=== PATIENT | female | born 1945 | race Caucasian/White ===

== ENCOUNTER 2018-12-01 05:29 | Day surgery (SDC) | payer OTHER ==
[2018-11-27 14:11] VITALS: BP 116/59
[~2018-12-01] VITALS: Ht 176.5 cm; Wt 76.4 kg
[2018-12-01] VITALS (14 sets, daily range): BP systolic 97–110; BP diastolic 48–66
[~2018-12-01 05:29] MED LIST: BIESTROGEN PO; GABA-529 PO; GABA-531 PO; MULT-965 PO; PRAS1TAB2 PO; ROPI1TAB38 PO; TESTOSTERONE PO
[2018-12-01] MEDS ORDERED: BUPIVACAINE/PF 0.5% 30ML VIAL ONE (06:01)
[2018-12-01] MEDS ORDERED: LIDOCAINE HCL 1% MDV 50ML VIAL ONE (06:02)
[2018-12-01] MEDS ORDERED: LACTATED RINGERS 1000ML 1,000 ML IV ONE (06:07)
[2018-12-01] MEDS ORDERED: LIDOCAINE PF 2% 5ML ABBOJECT ONE (06:30)
[2018-12-01] MEDS ORDERED: FENTANYL CITRATE PF 50 MCG/1 ML 2ML VIAL ONE (06:30)
[2018-12-01] MEDS ORDERED: PROPOFOL 10 MG/ML 20ML VIAL IV ONE (06:30)
[2018-12-01] MEDS ORDERED: CEFAZOLIN SODIUM 1 GM VIAL ONE (06:41)
[2018-12-01] MEDS ORDERED: EPHEDRINE SULFATE 50 MG/ML AMPULE ONE (06:43)
[2018-12-01] MEDS ORDERED: KETOROLAC TROMETHAMINE 30MG/ML ONE (08:03)
--- NOTE | 2018-12-01 09:35 | NUR ---
DR ALVARADO, CALLS BACK,ORDERS TO CONTINUE HOME MEDS ,MAY AMBULATE TO BR USING HEELS ,AND THE LEAST WALKING,ONLY BR,,ATB HOME,KEEP DRESSING CLEAN AND DRY TIL SEEN IN OFFICE
--- NOTE | 2018-12-01 10:00 | NUR ---
NOTICED SCANT AMT OF SEROUS DRAINAGE TO LT SIDE OF LITTLE TOE ,LT FOOT,MARKED ,INSTRUCTED PT AND SPOUSE TO CALL DR OR BRING TO ER IF INCREASES ,VERBALIZES UNDERSTANDING
--- NOTE | 2018-12-01 10:10 | NUR ---
TO CAR VIA
== END 2018-12-01 10:10 | disposition home or self-care (01) ==
LOC: DAH 05:29
PROVIDERS: ATTEND Podiatrist Foot & Ankle Surgery
DX: M20.41 Other hammer toe(s) (acquired), right foot (principal); M72.2 Plantar fascial fibromatosis; E78.5 Hyperlipidemia, unspecified; J44.9 Chronic obstructive pulmonary disease, unspecified; Z98.890 Other specified postprocedural states; Z79.899 Other long term (current) drug therapy; G89.29 Other chronic pain; Z90.710 Acquired absence of both cervix and uterus; Z98.51 Tubal ligation status; E55.9 Vitamin D deficiency, unspecified; G25.81 Restless legs syndrome; K21.9 Gastro-esophageal reflux disease without esophagitis
CPT/HCPCS: 28060; 28285 ×3; 28286; 76000; A4649; A6446; C1776; J0690; J2001; J2704; J3010; J3490 ×3; J7120; L3260; J1885

== ENCOUNTER 2022-05-24 13:02 | Inpatient (IN) | payer OTHER ==
[~2022-05-24] VITALS: Ht 175.3 cm; Wt 82.8 kg
[2022-05-24] MEDS ORDERED: KETOROLAC 30MG VIAL (30MG/ML) IM STA (13:12)
[2022-05-24 15:16] LABS: BASOPHILS % (AUTO) 0.2 % (0.0-5.0); EOSINOPHILS % (AUTO) 0.8 % (0.0-8.0); HEMATOCRIT 36.7 % (36-48); LYMPHOCYTES % (AUTO) 6.1 % (21.0-51.0); MEAN CORPUSCULAR HGB CONC 32.4 g/dL (32.0-36.0); MEAN CORPUSCULAR VOLUME 92.4 fL (79-99); MONOCYTES % (AUTO) 5.7 % (3.0-13.0); NEUTROPHILS % (AUTO) 86.5 % (40.0-77.0); PLATELET COUNT (AUTO) 228 K/uL (130-400); RED BLOOD CELL COUNT(AUTO) 3.97 MIL/uL (4.00-5.50); RED CELL DISTRIBUTION WIDTH 14.8 % (11.0-15.5); WHITE BLOOD COUNT (AUTO) 8.6 K/uL (4.8-10.8)
[2022-05-24 15:25] LABS: CREATININE 0.7 mg/dL (0.5-1.5); POTASSIUM 3.3 mmol/L (3.5-5.1)
[2022-05-24 15:26] LABS: INR 0.98 (0.85-1.15); PROTHROMBIN TIME 10.7 SEC (9.6-11.6)
[2022-05-24 15:30] LABS: ALBUMIN 3.4 g/dL (3.5-5.0); TOTAL PROTEIN, SERUM 6.2 g/dL (6.0-8.3)
[2022-05-24] MEDS ORDERED: KETOROLAC 30MG VIAL (30MG/ML) IVP PRN (15:30)
[2022-05-24] MEDS ORDERED: HYDROCODONE/ACETAMINOPHEN 5/325 MG TAB PO PRN ×2 (15:30→18:00)
[2022-05-24] MEDS ORDERED: ONDANSETRON 4MG INJ IVP PRN (15:30)
[2022-05-24] MEDS ORDERED: LACTULOSE 20 GM/30 ML UDCUP PO PRN ×2 (15:30→21:30)
[2022-05-24] MEDS: 0.9%NACL 1000ML 1,000 ML IV SCH ×2 (15:43→23:30)
[2022-05-24 16:20] VITALS: BP 119/68
[2022-05-24] MEDS ORDERED: MORPHINE 2 MG SYG ONE (17:31)
[2022-05-24 20:00] VITALS: BP 98/52
[2022-05-24] MEDS ORDERED: DULO60CA64 PO (21:22)
[2022-05-24] MEDS ORDERED: BACL10TA PO (21:22)
[2022-05-24] MEDS ORDERED: POTASSIUM CHLORIDE 10% ELIXIR 20 MEQ/15 ML UDCUP PO PRN (21:30)
[2022-05-24] MEDS ORDERED: KCL 20 MEQ ERTAB PO PRN (21:30)
[2022-05-24] MEDS ORDERED: MAG/ALUM/SIMETH 30 ML UDCUP PO PRN (21:30)
[2022-05-24] MEDS ORDERED: ACETAMINOPHEN 325 MG TAB PO PRN ×2 (21:30)
[2022-05-24] MEDS ORDERED: DIPHENHYDRAMINE HCL 25 MG CAPSULE PO PRN (21:30)
[2022-05-24] MEDS ORDERED: DiphenhydrAMINE HCL 50 MG/ML VIAL IV PRN (21:30)
[2022-05-24] MEDS: BACLOFEN 10 MG TABLET PO PRN (22:26)
[2022-05-25] VITALS: BP 98/55
[2022-05-25] MEDS: MORPHINE 4 MG SYG IVP PRN ×2 (00:51→08:27)
[2022-05-25] MEDS: ONDANSETRON 4MG INJ IV PRN (00:51)
[2022-05-25 04:00] VITALS: BP 105/56
[2022-05-25 05:42] LABS: HEMATOCRIT 37.4 % (36-48); MEAN CORPUSCULAR HEMOGLOBIN 30.3 pg (27.0-33.0); MEAN CORPUSCULAR HGB CONC 31.6 g/dL (32.0-36.0); MEAN CORPUSCULAR VOLUME 95.9 fL (79-99); RED BLOOD CELL COUNT(AUTO) 3.9 MIL/uL (4.00-5.50); RED CELL DISTRIBUTION WIDTH 15.3 % (11.0-15.5); WHITE BLOOD COUNT (AUTO) 5.1 K/uL (4.8-10.8)
[2022-05-25 05:50] LABS: CREATININE 0.9 mg/dL (0.5-1.5); POTASSIUM 4.6 mmol/L (3.5-5.1)
[2022-05-25 08:00] VITALS: BP 97/60
[2022-05-25] MEDS: DULOXETINE HCL 30 MG CAP PO SCH ×2 (08:26→20:24)
[2022-05-25] MEDS: ENOXAPARIN SODIUM 40 MG/0.4 ML SYRINGE SQ SCH (08:26)
[2022-05-25] MEDS: PANTOPRAZOLE 40 MG TAB DR PO SCH (08:26)
[2022-05-25] MEDS: 0.9%NACL 1000ML 1,000 ML IV SCH ×3 (08:27→23:04)
[2022-05-25] MEDS ORDERED: MORPHINE 4 MG SYG IVP PRN (09:30)
[2022-05-25] MEDS ORDERED: ALBUTEROL 0.083% 2.5 MG/3 ML INH IH PRN (09:30)
[2022-05-25 12:00] VITALS: BP 106/45
[2022-05-25] MEDS: ALBUTEROL 0.083% 2.5 MG/3 ML INH IH SCH ×2 (14:21→22:57)
[2022-05-25] MEDS: BACLOFEN 10 MG TABLET PO PRN ×2 (14:40→20:24)
[2022-05-25 16:00] VITALS: BP 80/46
[2022-05-25] MEDS: HYDROCODONE/ACETAMINOPHEN 5/325 MG TAB PO PRN ×2 (17:28→22:00)
[2022-05-25] MEDS ORDERED: IPRATROPIUM 0.5 MG/2.5 ML INH IH SCH (18:30)
[2022-05-25] MEDS ORDERED: MULTIVITAMIN TABLET PO SCH (18:30)
[2022-05-25] MEDS ORDERED: CHLORDIAZEPOXIDE HCL 25 MG CAP PO PRN (18:30)
[2022-05-25] MEDS ORDERED: THIAMINE HCL 100 MG/ML 2ML VIAL IVP SCH (18:30)
[2022-05-25] MEDS ORDERED: [UNRECOGNIZED DRUG - MIXTURE] IV SCH (19:00)
[2022-05-25 20:00] VITALS: BP 100/55
[2022-05-25] MEDS: ROPINIROLE HCL 1 MG TABLET PO SCH (20:24)
[2022-05-25 20:31] LABS: ABG BASE EXCESS -1.9 mmol/L (-2.0-3.0); ABG OXYGEN SATURATION 92.8 % (95.0-99.0); ABG PCO2 45 mmHg (32-45)
[2022-05-26] VITALS (19 sets, daily range): BP systolic 93–118; BP diastolic 50–69
[2022-05-26 03:45] LABS: HEMATOCRIT 33.8 % (36-48); MEAN CORPUSCULAR HEMOGLOBIN 30.3 pg (27.0-33.0); MEAN CORPUSCULAR HGB CONC 31.7 g/dL (32.0-36.0); MEAN CORPUSCULAR VOLUME 95.8 fL (79-99); RED BLOOD CELL COUNT(AUTO) 3.53 MIL/uL (4.00-5.50); WHITE BLOOD COUNT (AUTO) 5.7 K/uL (4.8-10.8)
[2022-05-26 04:01] LABS: CREATININE 0.7 mg/dL (0.5-1.5); POTASSIUM 4.5 mmol/L (3.5-5.1)
[2022-05-26] MEDS: MORPHINE 2 MG SYG IVP PRN ×2 (04:18→09:35)
[2022-05-26] MEDS: ONDANSETRON 4MG INJ IV PRN ×2 (04:18→09:34)
[2022-05-26] MEDS ORDERED: IPRATROPIUM 0.5 MG/2.5 ML INH IH ONE (06:32)
[2022-05-26] MEDS: ALBUTEROL 0.083% 2.5 MG/3 ML INH IH SCH ×3 (07:46→23:09)
[2022-05-26] MEDS: IPRATROPIUM 0.5 MG/2.5 ML INH IH SCH ×3 (07:46→23:09)
[2022-05-26] MEDS: DULOXETINE HCL 30 MG CAP PO SCH ×2 (08:22→20:31)
[2022-05-26] MEDS: PANTOPRAZOLE 40 MG TAB DR PO SCH (08:22)
[2022-05-26] MEDS: ENOXAPARIN SODIUM 40 MG/0.4 ML SYRINGE SQ SCH ×2 (08:22→09:43)
[2022-05-26] MEDS: MULTIVITAMIN TABLET PO SCH (08:22)
[2022-05-26] MEDS: THIAMINE HCL 100 MG/ML 2ML VIAL IVP SCH (09:34)
[2022-05-26] MEDS ORDERED: FENTANYL CITRATE PF 50 MCG/1 ML 2ML VIAL ONE ×2 (12:06→15:06)
[2022-05-26] MEDS ORDERED: MIDAZOLAM HCL 1 MG/ML 2ML VIAL ONE (12:06)
[2022-05-26] MEDS ORDERED: PROPOFOL 10 MG/ML 20ML VIAL IV ONE (12:06)
[2022-05-26] MEDS ORDERED: ROCURONIUM 10MG/1ML SYR 10 MG/ML ML ONE ×2 (12:07→13:48)
[2022-05-26] MEDS ORDERED: SUCCINYLCHOLINE CHLORIDE 20 MG/ML 10 ML VIAL ONE (12:07)
[2022-05-26] MEDS ORDERED: LIDOCAINE PF 100MG/5ML (2%) SYRINGE 5ML ONE (12:07)
[2022-05-26] MEDS ORDERED: DEXAMETHASONE SOD PHOSPHATE 10MG/ML 1ML VIAL ONE (12:08)
[2022-05-26] MEDS ORDERED: ONDANSETRON 4MG INJ ONE (12:08)
[2022-05-26] MEDS ORDERED: DEXAMETHASONE SOD PHOSPHATE 4 MG/ML 1ML VIAL ONE (12:26)
[2022-05-26] MEDS ORDERED: ROPIVACAINE 0.5% 5MG/ML 30ML IJ ONE (12:26)
[2022-05-26] MEDS ORDERED: FAMOTIDINE 20MG VIAL IV ONE (12:27)
[2022-05-26] MEDS ORDERED: CEFAZOLIN SODIUM 1 GM VIAL ONE (12:53)
[2022-05-26] MEDS ORDERED: DIPHENHYDRAMINE HCL 25 MG CAPSULE PO PRN (13:30)
[2022-05-26] MEDS ORDERED: KCL 20 MEQ ERTAB PO PRN (13:30)
[2022-05-26] MEDS: 0.9%NACL 1000ML 1,000 ML IV SCH ×2 (13:30→23:30)
[2022-05-26] MEDS ORDERED: CALCIUM CARB 500MG PO PRN (13:30)
[2022-05-26] MEDS: ACETAMINOPHEN 500 MG TABLET PO SCH ×2 (13:30→20:38)
[2022-05-26] MEDS ORDERED: FERROUS FUMARATE 324 MG TABLET PO PRN (13:30)
[2022-05-26] MEDS ORDERED: POTASSIUM CHLORIDE 10% ELIXIR 20 MEQ/15 ML UDCUP PO PRN (13:30)
[2022-05-26] MEDS ORDERED: POTASSIUM CHLORIDE 20MEQ/100ML 100 ML IV PRN (13:30)
[2022-05-26] MEDS ORDERED: DiphenhydrAMINE HCL 50 MG/ML VIAL IVP PRN (13:30)
[2022-05-26] MEDS ORDERED: GLYCOPYRROLATE 1 MG/5 ML SYRINGE ONE (14:28)
[2022-05-26] MEDS ORDERED: NEOSTIGMINE 5MG/5ML SYR IV ONE (14:28)
[2022-05-26] MEDS: CEFAZOLIN SODIUM 1 GM VIAL IVP SCH (20:30)
[2022-05-26] MEDS: ROPINIROLE HCL 1 MG TABLET PO SCH (20:31)
[2022-05-27 04:07] VITALS: BP 108/62
[2022-05-27] MEDS: CEFAZOLIN SODIUM 1 GM VIAL IVP SCH (04:54)
[2022-05-27] MEDS: ACETAMINOPHEN 500 MG TABLET PO SCH ×3 (04:57→21:30)
[2022-05-27 05:05] LABS: BASOPHILS % (AUTO) 0.1 % (0.0-5.0); HEMATOCRIT 31.4 % (36-48); LYMPHOCYTES % (AUTO) 2.9 % (21.0-51.0); MEAN CORPUSCULAR HEMOGLOBIN 30.1 pg (27.0-33.0); MEAN CORPUSCULAR HGB CONC 31.8 g/dL (32.0-36.0); MEAN CORPUSCULAR VOLUME 94.6 fL (79-99); MONOCYTES % (AUTO) 4.9 % (3.0-13.0); NEUTROPHILS % (AUTO) 91.7 % (40.0-77.0); PLATELET COUNT (AUTO) 197 K/uL (130-400); RED BLOOD CELL COUNT(AUTO) 3.32 MIL/uL (4.00-5.50); RED CELL DISTRIBUTION WIDTH 14.7 % (11.0-15.5); WHITE BLOOD COUNT (AUTO) 8.2 K/uL (4.8-10.8)
[2022-05-27 05:10] LABS: CREATININE 0.7 mg/dL (0.5-1.5); POTASSIUM 4.4 mmol/L (3.5-5.1)
[2022-05-27] MEDS: IPRATROPIUM 0.5 MG/2.5 ML INH IH SCH ×3 (06:30→21:58)
[2022-05-27] MEDS: ALBUTEROL 0.083% 2.5 MG/3 ML INH IH SCH ×3 (06:30→21:58)
[2022-05-27 08:08] VITALS: BP 92/58
[2022-05-27] MEDS ORDERED: ENOXAPARIN SODIUM 40 MG/0.4 ML SYRINGE SQ SCH (09:00)
[2022-05-27] MEDS: 0.9%NACL 1000ML 1,000 ML IV SCH (09:30)
[2022-05-27] MEDS: DULOXETINE HCL 30 MG CAP PO SCH ×2 (11:09→21:04)
[2022-05-27 11:10] VITALS: BP 101/61
[2022-05-27] MEDS: MULTIVITAMIN TABLET PO SCH (11:10)
[2022-05-27] MEDS: POLYETHYLENE GLYCOL 3350 17 GM POWD.PACK PO SCH (11:10)
[2022-05-27] MEDS: PANTOPRAZOLE 40 MG TAB DR PO SCH (11:11)
[2022-05-27] MEDS: THIAMINE HCL 100 MG/ML 2ML VIAL IVP SCH (11:12)
[2022-05-27] MEDS: HYDROCODONE/ACETAMINOPHEN 5/325 MG TAB PO PRN ×2 (11:18→21:08)
[2022-05-27] MEDS: PSYLLIUM SEED 1 EACH PACKET PO SCH (12:00)
[2022-05-27] MEDS ORDERED: HYDR-4060 PO (14:18)
[2022-05-27] MEDS ORDERED: APIX5TAB PO (14:18)
[2022-05-27 16:51] VITALS: BP 102/59
[2022-05-27] MEDS: ROPINIROLE HCL 1 MG TABLET PO SCH (21:03)
[2022-05-27] MEDS: APIXABAN 5 MG TABLET PO SCH (21:07)
[2022-05-27] MEDS: BACLOFEN 10 MG TABLET PO PRN (21:07)
[2022-05-28] VITALS: BP 93/46
[2022-05-28 04:00] VITALS: BP 90/49
[2022-05-28] MEDS: ACETAMINOPHEN 500 MG TABLET PO SCH (05:30)
[2022-05-28] MEDS: HYDROCODONE/ACETAMINOPHEN 5/325 MG TAB PO PRN (06:09)
[2022-05-28] MEDS: IPRATROPIUM 0.5 MG/2.5 ML INH IH SCH ×2 (06:45→14:29)
[2022-05-28] MEDS: ALBUTEROL 0.083% 2.5 MG/3 ML INH IH SCH ×2 (06:45→14:29)
[2022-05-28 08:00] VITALS: BP 93/47
[2022-05-28] MEDS: THIAMINE HCL 100 MG/ML 2ML VIAL IVP SCH (08:49)
[2022-05-28] MEDS: APIXABAN 5 MG TABLET PO SCH (08:50)
[2022-05-28] MEDS: POLYETHYLENE GLYCOL 3350 17 GM POWD.PACK PO SCH (08:50)
[2022-05-28] MEDS: DULOXETINE HCL 30 MG CAP PO SCH (08:50)
[2022-05-28] MEDS: PANTOPRAZOLE 40 MG TAB DR PO SCH (08:50)
[2022-05-28] MEDS: MULTIVITAMIN TABLET PO SCH (08:50)
[2022-05-28 11:52] VITALS: BP 101/47
[2022-05-28] MEDS: PSYLLIUM SEED 1 EACH PACKET PO SCH (12:00)
[2022-05-28] MEDS ORDERED: BISACODYL 5 MG TABLET.DR PO PRN (13:30)
[2022-05-28] MEDS ORDERED: MAGNESIUM CITRATE 296 ML SOLUTION PO ONE (13:30)
[2022-05-28] MEDS ORDERED: LACTULOSE 20 GM/30 ML UDCUP PO ONE (14:30)
[2022-05-29] MEDS ORDERED: BISACODYL 10 MG SUPP.RECT RC PRN (13:30)
== END 2022-05-28 15:06 | disposition home health service (06) | DRG 522 ==
LOC: EDH 13:02 → EDHIP 15:14 → 4AH 16:16
PROVIDERS: ADMIT Internal Medicine; ATTEND Internal Medicine
PROC: 0SRR0JZ Replacement of Right Hip Joint, Femoral Surface with Synthetic Substitute, Open Approach (ICD-10-PCS; principal; 2022-05-26 12:34)
DX: S72.001A Fracture of unspecified part of neck of right femur, initial encounter for closed fracture (principal); G72.0 Drug-induced myopathy; I50.30 Unspecified diastolic (congestive) heart failure; J96.11 Chronic respiratory failure with hypoxia; Z20.822 Contact with and (suspected) exposure to COVID-19; M51.9 Unspecified thoracic, thoracolumbar and lumbosacral intervertebral disc disorder; K31.84 Gastroparesis; K21.9 Gastro-esophageal reflux disease without esophagitis; G25.81 Restless legs syndrome; M54.10 Radiculopathy, site unspecified; J44.9 Chronic obstructive pulmonary disease, unspecified; W01.0XXA Fall on same level from slipping, tripping and stumbling without subsequent striking against object, initial encounter; E78.00 Pure hypercholesterolemia, unspecified; K66.0 Peritoneal adhesions (postprocedural) (postinfection); T46.6X5A Adverse effect of antihyperlipidemic and antiarteriosclerotic drugs, initial encounter; Z90.49 Acquired absence of other specified parts of digestive tract; Z86.16 Personal history of COVID-19; Z79.01 Long term (current) use of anticoagulants; Y93.89 Activity, other specified; Y92.89 Other specified places as the place of occurrence of the external cause; Y99.8 Other external cause status
CPT/HCPCS: 36415; 36600; 71045; 71250; 72192; 73502; 76705; 80048; 80053; 82803; 85025; 85027; 85610; 87635; 93306; 93356; 94010; 94640; 94664; 97039; A4344; C1776; G0378; J0330; J0690; J1100; J1650; J1885; J2001; J2250; J2270; J2405; J2704; J2710; J2795; J3010; J3411; J3490; J7030

== ENCOUNTER 2022-12-03 20:45 | Inpatient (IN) | payer OTHER ==
[~2022-12-03] VITALS: Ht 175.3 cm; Wt 81.6 kg
[~2022-12-03 20:45] MED LIST changes: +APIX5TAB PO; +BACL10TA PO; +DULO60CA64 PO; -GABA-529 PO; -GABA-531 PO; +HYDR-4060 PO
[2022-12-03 21:56] LABS: BASOPHILS % (AUTO) 0.2 % (0.0-5.0); EOSINOPHILS % (AUTO) 0.4 % (0.0-8.0); HEMATOCRIT 44.3 % (36-48); LYMPHOCYTES % (AUTO) 5.3 % (21.0-51.0); MEAN CORPUSCULAR HEMOGLOBIN 30.2 pg (27.0-33.0); MEAN CORPUSCULAR HGB CONC 31.8 g/dL (32.0-36.0); MEAN CORPUSCULAR VOLUME 94.9 fL (79-99); MONOCYTES % (AUTO) 5.7 % (3.0-13.0); NEUTROPHILS % (AUTO) 87.5 % (40.0-77.0); PLATELET COUNT (AUTO) 268 K/uL (130-400); RED BLOOD CELL COUNT(AUTO) 4.67 MIL/uL (4.00-5.50); RED CELL DISTRIBUTION WIDTH 14.8 % (11.0-15.5); WHITE BLOOD COUNT (AUTO) 14.6 K/uL (4.8-10.8)
[2022-12-03] MEDS ORDERED: MORPHINE 4 MG SYG IVP ONE (22:00)
[2022-12-03] MEDS ORDERED: ONDANSETRON 4MG INJ IVP ONE (22:00)
[2022-12-03 22:06] LABS: CREATININE 0.7 mg/dL (0.5-1.5); POTASSIUM 3.6 mmol/L (3.5-5.1)
[2022-12-03 22:08] LABS: APPEARANCE,URINE CLEAR (CLEAR); BILIRUBIN,URINE NEGATIVE (NEGATIVE); COLOR,URINE YELLOW (YELLOW); GLUCOSE, URINE (UA) NEGATIVE (NEGATIVE); KETONES,URINE NEGATIVE (NEGATIVE); LEUKOCYTE ESTERASE ,URINE NEGATIVE Leu/uL (NEGATIVE); NITRATE,URINE NEGATIVE (NEGATIVE); OCCULT BLOOD,URINE SMALL (NEGATIVE); PH,URINE 5.5 (5.0-8.0); PROTEIN,URINE NEGATIVE (NEGATIVE); UROBILINOGEN,URINE 0.2 mg/dL (0.2-1.0)
[2022-12-03 22:08] LABS: INR 0.99 (0.85-1.15); PROTHROMBIN TIME 10.8 SEC (9.6-11.6)
[2022-12-03 22:11] LABS: ALBUMIN 4.5 g/dL (3.5-5.0)
[2022-12-03 22:19] LABS: BACTERIA,URINE RARE /HPF (None Seen); MUCUS,URINE RARE LPF (None Seen); SQUAMOUS EPITHELIAL CELL,UR MOD /HPF (0-2); WBC,URINE 0-1 /HPF (0-1)
[2022-12-03] MEDS ORDERED: ORPHENADRINE CITRATE 30 MG/ML ML IVP ONE (22:30)
[2022-12-03] MEDS ORDERED: IPRATROPIUM/ALBUTEROL SULFATE 3 ML SOLUTION IH PRN (23:30)
[2022-12-03] MEDS ORDERED: ACETAMINOPHEN 325 MG TAB PO PRN ×2 (23:30)
[2022-12-03] MEDS ORDERED: ONDANSETRON 4MG INJ IV PRN (23:30)
[2022-12-03] MEDS ORDERED: NITROGLYCERIN 0.4 MG SL TAB SL PRN (23:30)
[2022-12-03] MEDS: HYDROCODONE/ACETAMINOPHEN 5/325 MG TAB PO PRN (23:58)
[2022-12-04] VITALS (7 sets, daily range): BP systolic 89–105; BP diastolic 45–59
[2022-12-04] MEDS ORDERED: CHOL3000 PO (00:23)
[2022-12-04] MEDS ORDERED: CALC-1009 PO (00:23)
[2022-12-04] MEDS ORDERED: ASCO500T19 PO (00:23)
[2022-12-04] MEDS ORDERED: MV-M1TAB39 PO (00:23)
[2022-12-04] MEDS ORDERED: ACET-2113 PO (00:24)
[2022-12-04] MEDS ORDERED: KCL 20 MEQ ERTAB PO ONE (00:30)
[2022-12-04] MEDS ORDERED: IPRATROPIUM/ALBUTEROL SULFATE 3 ML SOLUTION IH PRN (00:30)
[2022-12-04] MEDS: 0.9%NACL 1000ML 1,000 ML IV SCH ×2 (00:51→10:30)
[2022-12-04 05:42] LABS: BASOPHILS % (AUTO) 0.2 % (0.0-5.0); EOSINOPHILS % (AUTO) 2.5 % (0.0-8.0); HEMATOCRIT 39.8 % (36-48); LYMPHOCYTES % (AUTO) 4.5 % (21.0-51.0); MEAN CORPUSCULAR HEMOGLOBIN 30.2 pg (27.0-33.0); MEAN CORPUSCULAR HGB CONC 31.7 g/dL (32.0-36.0); MEAN CORPUSCULAR VOLUME 95.4 fL (79-99); MONOCYTES % (AUTO) 6.6 % (3.0-13.0); NEUTROPHILS % (AUTO) 85.3 % (40.0-77.0); PLATELET COUNT (AUTO) 244 K/uL (130-400); RED BLOOD CELL COUNT(AUTO) 4.17 MIL/uL (4.00-5.50); RED CELL DISTRIBUTION WIDTH 14.9 % (11.0-15.5); WHITE BLOOD COUNT (AUTO) 12.2 K/uL (4.8-10.8)
[2022-12-04 06:15] LABS: ALBUMIN 3.4 g/dL (3.5-5.0); CREATININE 0.8 mg/dL (0.5-1.5); MAGNESIUM 2.2 mg/dL (1.80-2.40); POTASSIUM 5.2 mmol/L (3.5-5.1); TOTAL PROTEIN, SERUM 6.3 g/dL (6.0-8.3)
[2022-12-04] MEDS: ASCORBIC ACID 500 MG TAB PO SCH (08:04)
[2022-12-04] MEDS: FAMOTIDINE 20MG TAB PO SCH ×2 (08:04→19:47)
[2022-12-04] MEDS: CA 600MG+VIT D 400 UNIT TAB 1 TAB TABLET PO SCH (08:04)
[2022-12-04] MEDS: DULOXETINE HCL 30 MG CAP PO SCH ×2 (08:04→19:47)
[2022-12-04] MEDS: BACLOFEN 10 MG TABLET PO PRN ×2 (08:08→19:47)
[2022-12-04] MEDS: MULTIVITAMIN TABLET PO SCH (08:08)
[2022-12-04] MEDS: OCUVITE PO SCH (09:00)
[2022-12-04] MEDS: CHOLECALCIFEROL PO SCH (09:00)
[2022-12-04] MEDS: HYDROCODONE/ACETAMINOPHEN 5/325 MG TAB PO PRN (11:35)
[2022-12-04] MEDS: ROPINIROLE HCL 1 MG TABLET PO SCH (19:47)
[2022-12-04] MEDS: [UNRECOGNIZED DRUG - OTHER] PO SCH (20:50)
[2022-12-05] VITALS (22 sets, daily range): BP systolic 84–132; BP diastolic 42–73
[2022-12-05 05:46] LABS: BASOPHILS % (AUTO) 0.4 % (0.0-5.0); EOSINOPHILS % (AUTO) 3.7 % (0.0-8.0); HEMATOCRIT 38.5 % (36-48); LYMPHOCYTES % (AUTO) 5.2 % (21.0-51.0); MEAN CORPUSCULAR HEMOGLOBIN 30.2 pg (27.0-33.0); MEAN CORPUSCULAR HGB CONC 31.4 g/dL (32.0-36.0); MONOCYTES % (AUTO) 4.5 % (3.0-13.0); NEUTROPHILS % (AUTO) 85.4 % (40.0-77.0); PLATELET COUNT (AUTO) 203 K/uL (130-400); RED BLOOD CELL COUNT(AUTO) 4.01 MIL/uL (4.00-5.50); RED CELL DISTRIBUTION WIDTH 14.9 % (11.0-15.5); WHITE BLOOD COUNT (AUTO) 7.6 K/uL (4.8-10.8)
[2022-12-05 06:08] LABS: ALBUMIN 3.2 g/dL (3.5-5.0); CREATININE 0.8 mg/dL (0.5-1.5); POTASSIUM 3.9 mmol/L (3.5-5.1); TOTAL PROTEIN, SERUM 6.3 g/dL (6.0-8.3)
[2022-12-05] MEDS ORDERED: ROCURONIUM 10MG/1ML SYR 10 MG/ML ML ONE ×2 (07:51→08:55)
[2022-12-05] MEDS ORDERED: MIDAZOLAM HCL 1 MG/ML 2ML VIAL ONE (07:51)
[2022-12-05] MEDS ORDERED: SUCCINYLCHOLINE 200MG/10ML SYR ONE (07:51)
[2022-12-05] MEDS ORDERED: FENTANYL CITRATE PF 50 MCG/1 ML 2ML VIAL ONE (07:51)
[2022-12-05] MEDS ORDERED: PROPOFOL 10 MG/ML 20ML VIAL IV ONE (07:51)
[2022-12-05] MEDS ORDERED: TRANEXAMIC ACID 1000MG/10ML ONE ×2 (08:41→08:42)
[2022-12-05] MEDS: CHOLECALCIFEROL PO SCH (09:00)
[2022-12-05] MEDS: DULOXETINE HCL 30 MG CAP PO SCH ×2 (09:00→21:25)
[2022-12-05] MEDS: CA 600MG+VIT D 400 UNIT TAB 1 TAB TABLET PO SCH (09:00)
[2022-12-05] MEDS: FAMOTIDINE 20MG TAB PO SCH ×2 (09:00→21:25)
[2022-12-05] MEDS: OCUVITE PO SCH (09:00)
[2022-12-05] MEDS: MULTIVITAMIN TABLET PO SCH (09:00)
[2022-12-05] MEDS: ASCORBIC ACID 500 MG TAB PO SCH (09:00)
[2022-12-05] MEDS ORDERED: NEOSTIGMINE 5MG/5ML SYR IV ONE (10:03)
[2022-12-05] MEDS ORDERED: GLYCOPYRROLATE 1 MG/5 ML SYRINGE ONE (10:03)
[2022-12-05] MEDS ORDERED: ROPIVACAINE 0.5% 5MG/ML 30ML IJ ONE (10:06)
[2022-12-05] MEDS ORDERED: MEPERIDINE-PF 25 MG/ML SYG ONE ×2 (10:37→10:46)
[2022-12-05] MEDS ORDERED: KETOROLAC 15MG/ML VIAL (15MG/ML) ONE (10:46)
[2022-12-05] MEDS: RIVAROXABAN 10 MG TABLET PO SCH (12:00)
[2022-12-05] MEDS: HYDROCODONE/ACETAMINOPHEN 5/325 MG TAB PO PRN ×3 (12:11→23:31)
[2022-12-05] MEDS: BACLOFEN 10 MG TABLET PO PRN (15:31)
[2022-12-05] MEDS: ROPINIROLE HCL 1 MG TABLET PO SCH (21:25)
[2022-12-05] MEDS: [UNRECOGNIZED DRUG - OTHER] PO SCH (21:28)
[2022-12-06] VITALS: BP 99/48
[2022-12-06] MEDS: HYDROCODONE/ACETAMINOPHEN 5/325 MG TAB PO PRN ×3 (03:37→14:12)
[2022-12-06 04:00] VITALS: BP 103/45
[2022-12-06 06:39] LABS: BASOPHILS % (AUTO) 0.1 % (0.0-5.0); EOSINOPHILS % (AUTO) 4.4 % (0.0-8.0); HEMATOCRIT 29.3 % (36-48); LYMPHOCYTES % (AUTO) 6.3 % (21.0-51.0); MEAN CORPUSCULAR HEMOGLOBIN 29.7 pg (27.0-33.0); MEAN CORPUSCULAR HGB CONC 30.7 g/dL (32.0-36.0); MEAN CORPUSCULAR VOLUME 96.7 fL (79-99); MONOCYTES % (AUTO) 9.1 % (3.0-13.0); PLATELET COUNT (AUTO) 164 K/uL (130-400); RED BLOOD CELL COUNT(AUTO) 3.03 MIL/uL (4.00-5.50); RED CELL DISTRIBUTION WIDTH 14.8 % (11.0-15.5); WHITE BLOOD COUNT (AUTO) 7.4 K/uL (4.8-10.8)
[2022-12-06 06:54] LABS: ALBUMIN 2.4 g/dL (3.5-5.0); CREATININE 0.8 mg/dL (0.5-1.5); POTASSIUM 4.7 mmol/L (3.5-5.1)
[2022-12-06 08:00] VITALS: BP 93/47
[2022-12-06] MEDS: OCUVITE PO SCH (09:00)
[2022-12-06] MEDS: CHOLECALCIFEROL PO SCH (09:00)
[2022-12-06] MEDS: DULOXETINE HCL 30 MG CAP PO SCH (09:32)
[2022-12-06] MEDS: MULTIVITAMIN TABLET PO SCH (09:33)
[2022-12-06] MEDS: FAMOTIDINE 20MG TAB PO SCH (09:33)
[2022-12-06] MEDS: CA 600MG+VIT D 400 UNIT TAB 1 TAB TABLET PO SCH (09:33)
[2022-12-06] MEDS: RIVAROXABAN 10 MG TABLET PO SCH (09:33)
[2022-12-06] MEDS: ASCORBIC ACID 500 MG TAB PO SCH (09:33)
[2022-12-06 11:46] VITALS: BP 96/48
[2022-12-06] MEDS ORDERED: HYDR-4060 PO (14:30)
[2022-12-06 16:00] VITALS: BP 102/57
[2022-12-06] MEDS ORDERED: RIVA10TA PO (18:47)
== END 2022-12-06 17:30 | disposition home or self-care (01) | DRG 522 ==
LOC: EDH 20:45 → EDHIP 22:52 → 3CH 23:35
PROVIDERS: ADMIT Internal Medicine; ATTEND Internal Medicine
PROC: 0SRS03A Replacement of Left Hip Joint, Femoral Surface with Ceramic Synthetic Substitute, Uncemented, Open Approach (ICD-10-PCS; principal; 2022-12-05 07:54)
DX: S72.002A Fracture of unspecified part of neck of left femur, initial encounter for closed fracture (principal); E87.1 Hypo-osmolality and hyponatremia; R65.10 Systemic inflammatory response syndrome (SIRS) of non-infectious origin without acute organ dysfunction; G95.9 Disease of spinal cord, unspecified; G72.0 Drug-induced myopathy; Z20.822 Contact with and (suspected) exposure to COVID-19; D72.829 Elevated white blood cell count, unspecified; J44.9 Chronic obstructive pulmonary disease, unspecified; K21.9 Gastro-esophageal reflux disease without esophagitis; G89.29 Other chronic pain; M54.30 Sciatica, unspecified side; G25.81 Restless legs syndrome; T46.6X5A Adverse effect of antihyperlipidemic and antiarteriosclerotic drugs, initial encounter; M54.10 Radiculopathy, site unspecified; F32.A Depression, unspecified; E78.00 Pure hypercholesterolemia, unspecified; I44.4 Left anterior fascicular block; K31.84 Gastroparesis; M19.90 Unspecified osteoarthritis, unspecified site; M51.9 Unspecified thoracic, thoracolumbar and lumbosacral intervertebral disc disorder; S51.012A Laceration without foreign body of left elbow, initial encounter; W01.0XXA Fall on same level from slipping, tripping and stumbling without subsequent striking against object, initial encounter; Y92.009 Unspecified place in unspecified non-institutional (private) residence as the place of occurrence of the external cause; Y93.01 Activity, walking, marching and hiking; Z79.01 Long term (current) use of anticoagulants; Z80.7 Family history of other malignant neoplasms of lymphoid, hematopoietic and related tissues; Y99.8 Other external cause status; Z87.891 Personal history of nicotine dependence; Z90.710 Acquired absence of both cervix and uterus
CPT/HCPCS: 36415; 71045; 73070; 73502; 73503; 80053; 81001; 83735; 85025; 85610; 86850; 86900; 86901; 87635; 93005; 94640; 97039; C9803; G0378; J0330; J1885; J2175; J2250; J2270; J2405; J2704; J2710; J2795; J3010; J3490; J7030

== ENCOUNTER 2024-05-12 20:05 | Emergency (ER) | payer OTHER ==
[~2024-05-12] VITALS: Ht 175.3 cm; Wt 78.0 kg
[~2024-05-12 20:05] MED LIST changes: +ACET-2113 PO; -APIX5TAB PO; +ASCO500T19 PO; +CALC-1009 PO; +CHOL3000 PO; +MV-M1TAB39 PO; -PRAS1TAB2 PO; +RIVA10TA PO; -TESTOSTERONE PO
[2024-05-12 20:26] LABS: BASOPHILS # (AUTO) 0.01 K/uL (0.00-0.20); BASOPHILS % (AUTO) 0.2 % (0.0-5.0); EOSINOPHILS # (AUTO) 0.12 K/uL (0.00-0.70); EOSINOPHILS % (AUTO) 2.7 % (0.0-8.0); HEMATOCRIT 38.4 % (36-48); IMMATURE GRANULOCYTE ABSOLUTE 0.01 K/uL (0-1); LYMPHOCYTES # (AUTO) 0.7 K/uL (1.0-4.8); LYMPHOCYTES % (AUTO) 15.4 % (21.0-51.0); MEAN CORPUSCULAR HEMOGLOBIN 29.4 pg (27.0-33.0); MEAN CORPUSCULAR VOLUME 91.6 fL (79-99); MONOCYTES # (AUTO) 0.4 K/uL (0.1-1.0); MONOCYTES % (AUTO) 7.8 % (3.0-13.0); NEUTROPHILS # (AUTO) 3.3 K/uL (1.8-7.7); NEUTROPHILS % (AUTO) 73.7 % (40.0-77.0); PLATELET COUNT (AUTO) 256 K/uL (130-400); RED BLOOD CELL COUNT(AUTO) 4.19 MIL/uL (4.00-5.50); RED CELL DISTRIBUTION WIDTH 14.8 % (11.0-15.5); WHITE BLOOD COUNT (AUTO) 4.5 K/uL (4.8-10.8)
[2024-05-12 20:35] LABS: CREATININE 0.7 mg/dL (0.5-1.0); POTASSIUM 3.3 mmol/L (3.5-5.1)
[2024-05-12] MEDS: ONDANSETRON 4MG INJ IVP ONE (20:40)
[2024-05-12] MEDS: MORPHINE 2 MG SYG IVP ONE ×2 (20:40→22:30)
[2024-05-12] MEDS: acetaMINOPHEN 500 MG TABLET PO ONE (22:31)
[2024-05-13] MEDS: cefTRIAXone 1G VIAL IVPB ONE (00:29)
[2024-05-13 00:36] VITALS: BP 106/68; PULSE 71; RESP 12; O2SAT 96
== END 2024-05-13 00:49 | disposition home or self-care (01) ==
LOC: EDH 20:05
DX: S01.81XA Laceration without foreign body of other part of head, initial encounter (principal); E78.00 Pure hypercholesterolemia, unspecified; Z79.899 Other long term (current) drug therapy; Z90.49 Acquired absence of other specified parts of digestive tract; Z90.710 Acquired absence of both cervix and uterus; Z98.890 Other specified postprocedural states; W18.39XA Other fall on same level, initial encounter; Y93.89 Activity, other specified; Y92.89 Other specified places as the place of occurrence of the external cause; Y99.8 Other external cause status
CPT/HCPCS: 99285; 70450; 96374; 96375 ×2; 80048; 85025; 36415; 72125; 70486; 96376; 12014; J2270 ×2; J2405; J0696

== ENCOUNTER → 2024-11-08 | Outpatient (CLI) | payer OTHER ==
[~2024-11-08] MED LIST changes: -ACET-2113 PO; +ACET-3305 PO
--- NOTE | 2024-11-08 12:22 | HMCIMG ---
CHEST 2VWS REASON: SHORTNESS OF BREATH, COUGH, PERSONAL HX OF OTHER DISEASES OF THE RESP SYSTE COMPARISON: 12/03/2022 FINDINGS: Two views of the chest were obtained. There is a 2 cm density in the right lower lobe not seen on prior exam, this is visible only on the PA view. This could be a small focus of infiltrate but could also be a poorly defined mass. CT chest recommended for further evaluation. Lungs are otherwise clear. Heart size is normal. There is no vascular congestion. There are no pleural effusions. Mediastinum and bony thorax appear unremarkable. IMPRESSION: 1. 2 cm density in the right lower lobe which appears new since prior exam, this could be a small focus of infiltrate or poorly defined mass, CT chest recommended for further evaluation.
== END | disposition home or self-care (01) ==
LOC: RAH 11:42
PROVIDERS: ATTEND Internal Medicine
DX: R05.9 Cough, unspecified (principal); R06.02 Shortness of breath; Z87.09 Personal history of other diseases of the respiratory system
CPT/HCPCS: 71046

== ENCOUNTER 2024-11-17 12:45 | Emergency (ER) | payer OTHER ==
[~2024-11-17] VITALS: Ht 175.3 cm; Wt 78.0 kg
--- NOTE | 2024-11-17 12:56 | ERN ---
ED Note History of Present Illness Stated Complaint: MECHANICAL FALL Chief Complaint: Mechanical Fall Time Seen by MD: 12:46 Dictation: Patient is a 79-year-old female here with a laceration to her upper lip that involves the vermilion border, facial pain and levels I go swelling, left knee pain. She states she was walking when she tripped fell forward and did it a face plant. Last tetanus shot is unknown. She is on no blood thinners, no LOC no neck pain no back pain no midline spine pain. Ambulatory to triage last tetanus shot is unknown. Allergies: Coded Allergies: No Known Drug Allergies (Unverified Allergy, Unknown, 12/03/22) Home Meds Active Scripts Clindamycin HCl (Clindamycin HCl) 300 Mg Capsule, 1 CAP PO QID for 7 Days, #28 CAP 0 Refills Prov:CARLOS BERRY NP 11/17/24 Acetaminophen with Codeine (Acetaminophen-Cod #3 Tablet) 300 Mg-30 Mg Tablet, 1 TAB PO Q4H PRN for MODERATE TO SEVERE PAIN, #15 TAB 0 Refills Prov:CARLOS BERRY NP 11/17/24 Rivaroxaban (Xarelto) 10 Mg Tablet, 10 MG PO DAILY, #30 TAB 0 Refills Prov:MARCIA MODI MD 12/06/22 Hydrocodone/Acetaminophen (Hydrocodon-Acetaminophen 5-325) 1 Each Tablet, 1 EACH PO Q 4 HRS PRN for SEVERE PAIN (7-10), #30 TAB 0 Refills Prov:MARCIA MODI MD 12/06/22 Duloxetine HCl (Duloxetine HCl) 60 Mg Capsule.dr, 60 MG PO BID, #60 CAP 3 Refills Prov:MARCIA MODI MD 05/24/22 Baclofen (Baclofen) 10 Mg Tablet, 10 MG PO TID PRN for OTHER [SEE ORDER COMMENTS], #30 TAB 1 Refill PRN MUSCLE SPASM Prov:MARCIA MODI MD 05/24/22 Reported Medications Acetaminophen (Arthritis Pain) 650 Mg Tablet.er, 1300 MG PO BID, TAB 12/04/22 Cholecalciferol (Vitamin D3) (Vitamin D3) 75 Mcg Tablet, 225 MCG PO DAILY, TAB 12/04/22 Ascorbic Acid/Ascorbate Sodium (Vitamin C 500 mg Tablet Chew) 500 Mg Tab.chew, 500 MG PO DAILY, TAB.CHEW 12/04/22 Calcium Carb & Cit/Vitamin D3 (Calcium + D3 ER Tablet) 1 Each Tablet.er, 1 EACH PO DAILY, TAB 12/04/22 Mv-Mn/FA/Vit K/Lycop/Lut/Zeaxa (Ocuvite Eye + Multi Tablet) 1 Each Tablet, 1 EACH PO DAILY, TAB 12/04/22 Multivitamin (One Daily) 1 Each Tablet, 1 EACH PO AM, TAB 11/27/18 [Biestrogen] No Conflict Check, 200 MG PO HS 11/27/18 Ropinirole HCl (Requip) 1 Mg Tablet, 3 MG PO HS, TAB 11/27/18 Past Medical History Past Medical History: High Cholesterol, Other Additional Past Medical Hx: RESTLESS LEG, PNEUMOTHORAX Surgical History: Appendectomy, Hysterectomy, Other Surgical History Other: RT & LT HIP, THORACOTOMY , BREAST REDUCTION, ABD PLASTY PSYCH History: no pertinent psych hx Social History: Negative History: Not Applicable RN Note Reviewed/Agreed w/PFSH: Yes Review of System Dictation CONSTITUTIONAL: Negative except for HPI HEAD/FACE: Negative except for HPI laceration to left upper lip that includes vermilion border, left zygoma pain EENT: Negative except for HPI RESPIRATORY: Negative except for HPI GASTROINTESTINAL/ABDOMINAL: Negative except for HPI GENITOURINARY: Negative except for HPI MUSCULOSKELETAL: Negative except for HPI left knee pain abrasion INTEGUMENTARY: Negative except for HPI NEUROLOGICAL/PSYCH: Negative except for HPI HEMATOLOGIC/LYMPHATIC: Negative except for HPI All Systems Negative, Except as noted above. 13 point review of systems assessed and all negative except for above. Initial Vital Sign VS Vital Signs Date Time Temp Pulse Resp B/P (MAP) Pulse Ox O2 Delivery O2 Flow Rate FiO2 11/17/24 12:53 98.4 100 16 117/71 100 Room Air 11/17/24 14:47 0 21 Physical Exam Dictation Vital Signs reviewed General Appearance: Alert, oriented x 3, moderate acute distress, well developed, nourished. Head and Face: Left zygomatic arch pain swelling. Positive TMJ pain left Eyes: PERRL, pink conjunctivas, eyelid no trauma, anterior chamber with arcus senilis. Ears: Pinnas intact and no signs of trauma or erythema ear canals clear and no discharge TM no erythema Nose: No discharge, no bleeding. Oropharynx: Teeth intact, laceration to left upper lip that includes vermilion border. No mandibular pain pharynx clear,no erythema, tonsils no exudates, no abscesses noted, mucous membrane moist Neck: Supple, non-tender, no thyromegaly, no masses, no JVD, no bruits Breast:Deferred Chest:No tenderness, no crepitus, no paradoxical movement, no retractions Lungs:Clear, well-ventilated, symmetric, no rales, no wheezing, no rhonchi, no stridor, good breath sounds bilaterally Heart: Regular rate, regular rhythm, no murmur, no gallops Vascular: no peripheral edema, Abdomen: Soft, positive bowel sounds, nondistended, no guarding, nontender, no rebound, no masses no hepatomegaly, no splenomegaly, no Murillo's sign, no hernias. Rectal: Deferred Genital: Deferred Neurological: Normal speech, motor function intact, sensory function intact Musculoskeletal: Neck nontender, full range of motion, back nontender, full range of motion, Extremities: Left knee pain with a abrasions noted. Skin: Color pink, dry, no turgor, no rash, no lacerations, no abrasions, no contusions. Lymphatic: Deferred Results (Laboratory/Radiology) Laboratory/Radiology REASON: left zygo pain swelling status post fall ORDERING PHYSICIAN: CARLOS BERRY NP PROCEDURE: [id number] WO - CT MAXILLOFACIAL W/O CONTRAST CT FACIAL BONES WITHOUT CONTRAST INDICATION: Left zygomatic pain and swelling TECHNIQUE: 3D helical CT acquisition through the facial bones with coronal and sagittal reformatting. CT was performed with one or more of the following dose reduction techniques: Automated exposure control, adjustment of the mA and/or kV according to patient size, or use of iterative reconstruction technique. COMPARISON: None FINDINGS: Mild soft tissue swelling overlying the left anterior zygomatic arch. No evidence for orbital wall or zygomatic arch fracture. The globes are symmetrical in their appearance, and normal in attenuation. The optic nerves and muscles are normal in caliber. No evidence of preseptal or postseptal mass. No evidence for facial bone fracture. No nasal bone fracture identified. Cribriform plate and kalyan angle are intact. Nasal septum is deviated to the right. Mild right maxillary sinus floor mucosal thickening. Remainder of the visible paranasal sinuses are clear. Middle and inferior nasal turbinates appear unremarkable. Ostiomeatal units are patent bilaterally. 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 Chronic reversal of the normal cervical lordosis with apex at the C3-C4 level. IMPRESSION: No evidence for acute facial bone fracture. LEFT KNEE X-RAY NEGATIVE EXCEPT FOR DEGENERATIVE CHANGES Labs Reviewed?: Yes ED Course ED Course Orders Procedure Category Date Status Time Knee 3vws Lt RAD 11/17/24 Resulted 12:51 Ct Maxillofacial W/O CT 11/17/24 Resulted Contrast 12:51 Tetanus,Diphtheria PHA 11/17/24 Complete Tox [Adult] (Diphther 13:00 Acetaminophen With PHA 11/17/24 Complete Codeine (Tylenol-Code 13:00 Lidocaine Hcl 1% 20ml PHA 11/17/24 Complete Vial (Lidocaine Hc 13:00 Apply Ice Pack To: CPOE 11/17/24 Transmitted (Er) 12:57 Clindamycin 150mg Cap PHA 11/17/24 Complete (Cleocin 150mg Cap 15:30 Current Medications Medications (Trade) Dose Ordered Sig/Maegan Route PRN Reason Start Time Stop Time Status Last Admin Dose Admin Acetaminophen/ Codeine Phosphate (TYLenol-coDEINE TAB) 2 tab ONCE ONCE PO 11/17/24 13:00 11/17/24 13:01 DC 11/17/24 14:46 Clindamycin HCl (Cleocin 150mg Cap) 600 mg ONCE ONCE PO 11/17/24 15:30 11/17/24 15:31 DC 11/17/24 15:27 Lidocaine HCl (Lidocaine HCl 1% 20ml Vial) 10 ml ONCE ONCE INJ 11/17/24 13:00 11/17/24 13:01 DC 11/17/24 14:45 Tetanus/ Diphtheria Toxoids Adsorbed (DiphthERIA-teTANUS TOXOID [ADULT]/ DECAVAC) 0.5 ml ONCE ONCE IM 11/17/24 13:00 11/17/24 13:01 DC 11/17/24 14:47 Vital Signs Date Time Temp Pulse Resp B/P (MAP) Pulse Ox O2 Delivery O2 Flow Rate FiO2 11/17/24 15:28 98.1 81 18 121/69 98 Room Air* 0 21 11/17/24 14:47 98.4 84 20 124/71 98 Room Air* 0 21 11/17/24 12:53 98.4 100 16 117/71 100 Room Air 1515/PATIENT IS NEUROLOGICALLY INTACT SPEECH IS CLEAR. SHE IS AWARE OF RESULTS OF X-RAYS REQUESTED ANTIBIOTICS AND WE WILL START HER ON CLINDAMYCIN BEFORE DISCHARGING. Medical Decision Making MDM DISCHARGE INSTRUCTIONS INCLUDING CT SCAN OF THE FACE WITH A X-RAY OF THE LEFT KNEE ALL X-RAYS NEGATIVE TETANUS UPDATED COMPLICATED LACERATION TO LIP REPAIRED PATIENT AND HER GIVEN CLOSED HEAD INJURY INSTRUCTIONS AND WOUND CARE INSTRUCTIONS. PATIENT WILL BE DISCHARGED HOME WITH CLINDAMYCIN AND TYLENOL WITH 3. Procedure Procedure Dictation: 1505/PROCEDURE EXPLAINED TO PATIENT SHE WOULD AGREED TO PROCEED 2.5 CM LACERATION TO LEFT UPPER LIP THAT EXTENDS THROUGH THE VERMILION BORDER CLEANSED WITH STERILE WATER USED 1.5 ML 1% LIDOCAINE PLAIN FOR LOCAL ANESTHESIA LACERATION CLOSED WITH FOUR 4-0 CHROMIC SIMPLE INTERRUPTED CAREFUL ATTENTION TO APPROXIMATING THE VERMILION BORDER SINGLE-LAYER CLOSURE PATIENT TOLERATED WELL DX & DISP Disposition: Discharge Departure Impression: Primary Impression: Laceration of lip, complicated Additional Impressions: Facial contusion, Closed head injury, Contusion of left knee, initial encounter, Fall Condition: Stable Scripts Clindamycin HCl (Clindamycin HCl) 300 Mg Capsule 1 CAP PO QID for 7 Days, #28 CAP 0 Refills Prov: CARLOS BERRY NP 11/17/24 Acetaminophen with Codeine (Acetaminophen-Cod #3 Tablet) 300 Mg-30 Mg Tablet 1 TAB PO Q4H PRN for MODERATE TO SEVERE PAIN, #15 TAB 0 Refills Prov: CARLOS BERRY NP 11/17/24 Additional Instructions: Follow-up with primary care provider in 1 to 2 days. Take medications as directed here in the emergency room. Okay to continue home medications unless otherwise discussed during your visit in the emergency room today. Return to your nearest emergency room if symptoms worsen or if there is no improvement. Call 911 if you need immediate assistance. Take Tylenol or Motrin over-the-co unter as needed and if no contraindications are present. Increase oral hydration. A wound culture or urine culture was ordered here in the emergency room department please follow-up with primary care provider and advise them to get repeat ports from our facility. If you had any Vitor wrap/splints that were applied here, please do not remove them until you see your primary care or specialty. Okay to wash face with soap and water, sutures will dissolve on their own. Take antibiotics as directed until gone. Apply cool compresses to swelling on face three to 4 times a day. See your primary care doctor for follow up Return to the emergency room immediately if any changes from head injury information Referrals: MARCIA MODI MD (PCP) Time of Disposition: 15:17 I have reviewed the case, and I agree with, Diagnosis and Plan CARLOS BERRY NP Nov 17, 2024 12:56 BRAYDON LANG DO Nov 19, 2024 07:07
[2024-11-17] MEDS: LIDOCAINE HCL 1% 20 ML VIAL INJ ONE (14:45)
[2024-11-17] MEDS: acetaMINOPHEN WITH coDEINE 1 TAB TAB PO ONE (14:46)
--- NOTE | 2024-11-17 14:46 | HMCIMG ---
CT FACIAL BONES WITHOUT CONTRAST INDICATION: Left zygomatic pain and swelling TECHNIQUE: 3D helical CT acquisition through the facial bones with coronal and sagittal reformatting. CT was performed with one or more of the following dose reduction techniques: Automated exposure control, adjustment of the mA and/or kV according to patient size, or use of iterative reconstruction technique. COMPARISON: None FINDINGS: Mild soft tissue swelling overlying the left anterior zygomatic arch. No evidence for orbital wall or zygomatic arch fracture. The globes are symmetrical in their appearance, and normal in attenuation. The optic nerves and muscles are normal in caliber. No evidence of preseptal or postseptal mass. No evidence for facial bone fracture. No nasal bone fracture identified. Cribriform plate and kalyan angle are intact. Nasal septum is deviated to the right. Mild right maxillary sinus floor mucosal thickening. Remainder of the visible paranasal sinuses are clear. Middle and inferior nasal turbinates appear unremarkable. Ostiomeatal units are patent bilaterally. 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 Chronic reversal of the normal cervical lordosis with apex at the C3-C4 level. IMPRESSION: No evidence for acute facial bone fracture.
[2024-11-17] MEDS: teTANUS/diphthERIA TOXOID [ADULT] 0.5 ML VIAL IM ONE (14:47)
[2024-11-17] MEDS ORDERED: CLIN-141 PO (15:18)
[2024-11-17] MEDS ORDERED: ACET-2079 PO (15:18)
[2024-11-17] MEDS: CLINDAMYCIN 150 MG CAP PO ONE (15:27)
[2024-11-17 15:28] VITALS: BP 121/69; PULSE 81; RESP 18; TEMP 98; O2SAT 98
--- NOTE | 2024-11-17 21:42 | HMCIMG ---
LEFT KNEE RADIOGRAPHS - 3 VIEWS INDICATION: Pain COMPARISON: None FINDINGS: AP, lateral, and oblique views. Examination provided for interpretation at 9:39 PM on 11/17/2024. No fracture or dislocation identified. Moderate to severe medial, mild to moderate patellofemoral, and mild lateral compartment osteoarthropathy includes medial compartment joint space narrowing with secondary mild widening of the lateral compartment, medial compartment articular surface sclerosis/remodeling/related flattening, marginal osteophyte formation, and several subcentimeter subarticular erosions along the weightbearing surface of the medial femoral condyle suggesting high-grade chondromalacia. Nominal valgus deformity noted. Mild medial shift of the left femur upon the left tibia by a few millimeters. Small amount of suprapatellar bursal fluid. Overlying soft tissues appear normal. No radiopaque foreign body noted. 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
== END 2024-11-17 15:34 | disposition home or self-care (01) ==
LOC: EDH 12:45
DX: S01.511A Laceration without foreign body of lip, initial encounter (principal); S80.02XA Contusion of left knee, initial encounter; E78.00 Pure hypercholesterolemia, unspecified; Z79.01 Long term (current) use of anticoagulants; Z90.49 Acquired absence of other specified parts of digestive tract; Z90.710 Acquired absence of both cervix and uterus; Z79.899 Other long term (current) drug therapy; W01.0XXA Fall on same level from slipping, tripping and stumbling without subsequent striking against object, initial encounter; Y93.01 Activity, walking, marching and hiking; Y92.89 Other specified places as the place of occurrence of the external cause; Y99.8 Other external cause status
CPT/HCPCS: 40650; 70486; 73562; 90471; 90714; 99285

== ENCOUNTER 2025-03-15 12:22 | Observation (INO) | payer OTHER ==
[~2025-03-15] VITALS: Ht 175.3 cm; Wt 77.2 kg
[~2025-03-15 12:22] MED LIST changes: +ACET-2079 PO; +CLIN-141 PO
--- NOTE | 2025-03-15 12:42 | EKG ---
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
[2025-03-15 12:48] LABS: BASOPHILS # (AUTO) 0.02 K/uL (0.00-0.20); BASOPHILS % (AUTO) 0.3 % (0.0-5.0); EOSINOPHILS # (AUTO) 0.25 K/uL (0.00-0.70); EOSINOPHILS % (AUTO) 4.2 % (0.0-8.0); IMMATURE GRANULOCYTE ABSOLUTE 0.04 K/uL (0-1); LYMPHOCYTES # (AUTO) 0.9 K/uL (1.0-4.8); LYMPHOCYTES % (AUTO) 15.6 % (21.0-51.0); MEAN CORPUSCULAR HEMOGLOBIN 29.1 pg (27.0-33.0); MEAN CORPUSCULAR HGB CONC 31.8 g/dL (32.0-36.0); MEAN CORPUSCULAR VOLUME 91.3 fL (79-99); MONOCYTES # (AUTO) 0.6 K/uL (0.1-1.0); MONOCYTES % (AUTO) 9.5 % (3.0-13.0); NEUTROPHILS # (AUTO) 4.1 K/uL (1.8-7.7); NEUTROPHILS % (AUTO) 69.7 % (40.0-77.0); PLATELET COUNT (AUTO) 267 K/uL (130-400); RED BLOOD CELL COUNT(AUTO) 4.16 MIL/uL (4.00-5.50); RED CELL DISTRIBUTION WIDTH 15.6 % (11.0-15.5); WHITE BLOOD COUNT (AUTO) 5.9 K/uL (4.8-10.8)
[2025-03-15 12:54] LABS: CREATININE 0.7 mg/dL (0.5-1.0); POTASSIUM 3.9 mmol/L (3.5-5.1)
[2025-03-15] MEDS: LIDOCAINE HCL 1% 20 ML VIAL INJ ONE (13:00)
--- NOTE | 2025-03-15 13:10 | ERN ---
General Chief Complaint: Mechanical Fall Stated Complaint: FACIAL INJURY, FALL, DENIES BLOOD THINNERS Time Seen by MD: 12:25 Source: patient History of Present Illness Initial Comments Patient is a an 80-year-old female coming in to be evaluated after she had a fall. Per patient she does not know how she fell but it is a hit herself in the face. Believes he might have lost consciousness Allergies: Coded Allergies: rivaroxaban (Unverified Allergy, Unknown, 03/15/25) Home Meds Active Scripts Clindamycin HCl (Clindamycin HCl) 300 Mg Capsule, 1 CAP PO QID for 7 Days, #28 CAP 0 Refills Prov:CARLOS BERRY TUBER HELPER 11/17/24 Acetaminophen with Codeine (Acetaminophen-Cod #3 Tablet) 300 Mg-30 Mg Tablet, 1 TAB PO Q4H PRN for MODERATE TO SEVERE PAIN, #15 TAB 0 Refills Prov:CARLOS BERRY TUBER HELPER 11/17/24 Rivaroxaban (Xarelto) 10 Mg Tablet, 10 MG PO DAILY, #30 TAB 0 Refills Prov:MARCIA BRUSH MD 12/06/22 Hydrocodone/Acetaminophen (Hydrocodon-Acetaminophen 5-325) 1 Each Tablet, 1 EACH PO Q 4 HRS PRN for SEVERE PAIN (7-10), #30 TAB 0 Refills Prov:MARCIA BRUSH MD 12/06/22 Duloxetine HCl (Duloxetine HCl) 60 Mg Capsule.dr, 60 MG PO BID, #60 CAP 3 Refills Prov:MARCIA BRUSH MD 05/24/22 Baclofen (Baclofen) 10 Mg Tablet, 10 MG PO TID PRN for OTHER [SEE ORDER COMMENTS], #30 TAB 1 Refill PRN MUSCLE SPASM Prov:MARCIA BRUSH MD 05/24/22 Reported Medications Acetaminophen (Arthritis Pain) 650 Mg Tablet.er, 1300 MG PO BID, TAB 12/04/22 Cholecalciferol (Vitamin D3) (Vitamin D3) 75 Mcg Tablet, 225 MCG PO DAILY, TAB 12/04/22 Ascorbic Acid/Ascorbate Sodium (Vitamin C 500 mg Tablet Chew) 500 Mg Tab.chew, 500 MG PO DAILY, TAB.CHEW 12/04/22 Calcium Carb & Cit/Vitamin D3 (Calcium + D3 ER Tablet) 1 Each Tablet.er, 1 EACH PO DAILY, TAB 12/04/22 Mv-Mn/FA/Vit K/Lycop/Lut/Zeaxa (Ocuvite Eye + Multi Tablet) 1 Each Tablet, 1 EACH PO DAILY, TAB 12/04/22 Multivitamin (One Daily) 1 Each Tablet, 1 EACH PO AM, TAB 11/27/18 [Biestrogen] No Conflict Check, 200 MG PO HS 11/27/18 Ropinirole HCl (Requip) 1 Mg Tablet, 3 MG PO HS, TAB 11/27/18 Past Medical History Past Medical History: High Cholesterol, Other Medical History Other: RESTLESS LEG, PNEUMOTHORAX Past Surgical History: Appendectomy, Hysterectomy, Other Surgical History Other: RT & LT HIP, THORACOTOMY , BREAST REDUCTION, ABD PLASTY Social History Social History: Negative Female( History) History: Not Applicable Results Laboratory and Microbiology Lab and Micro Result Laboratory Tests Test 03/15/25 12:36 White Blood Count 5.9 K/uL (4.8-10.8) Red Blood Count 4.16 MIL/uL (4.00-5.50) Hemoglobin 12.1 g/dL (12.0-16.0) Hematocrit 38.0 % (36-48) Mean Corpuscular Volume 91.3 fL (79-99) Mean Corpuscular Hemoglobin 29.1 pg (27.0-33.0) Mean Corpuscular Hemoglobin Concent 31.8 g/dL (32.0-36.0) L Red Cell Distribution Width 15.6 % (11.0-15.5) H Platelet Count 267 K/uL (130-400) Mean Platelet Volume 8.9 fL (7.5-10.5) Immature Granulocyte % (Auto) 0.7 % (0-1) Neutrophils (%) (Auto) 69.7 % (40.0-77.0) Lymphocytes (%) (Auto) 15.6 % (21.0-51.0) L Monocytes (%) (Auto) 9.5 % (3.0-13.0) Eosinophils (%) (Auto) 4.2 % (0.0-8.0) Basophils (%) (Auto) 0.3 % (0.0-5.0) Neutrophils # (Auto) 4.1 K/uL (1.8-7.7) Lymphocytes # (Auto) 0.9 K/uL (1.0-4.8) L Monocytes # (Auto) 0.6 K/uL (0.1-1.0) Eosinophils # (Auto) 0.25 K/uL (0.00-0.70) Basophils # (Auto) 0.02 K/uL (0.00-0.20) Absolute Immature Granulocyte (auto 0.04 K/uL (0-1) Nucleated Red Blood Cells 0.0 % (0.0-0.19) Sodium Level 136 mmol/L (136-145) Potassium Level 3.9 mmol/L (3.5-5.1) Chloride Level 101 mmol/L (101-111) Carbon Dioxide Level 23 mmol/L (21-32) Blood Urea Nitrogen 25 mg/dL (7-18) H Creatinine 0.7 mg/dL (0.5-1.0) Glomerular Filtration Rate Calc 87 mL/min (>90) Random Glucose 123 mg/dL (70-105) H Total Calcium 8.9 mg/dL (8.5-10.1) Total Creatine Kinase 226 U/L (21-232) Troponin I High Sensitivity 7 ng/L (4-50) Labs Reviewed?: Yes EKG/XRAY/US/CT/MRI EKG Comment 03/15/2025 time 12:39 p.m. Ventricular rate 80 Sinus rhythm [place] [address] wave elevation or depression X-RAY Comment IMAGING REPORT Signed PATIENT: JACQUI CONWAY MR#: [id number] : 1945 SEX: F AGE: 80 LOCATION: [facility] ORDER 1234 STATUS: [facility] ER [facility] REPORT#: [id number] SERVICE 1233 REASON: fall ORDERING PHYSICIAN: YISEL STANFORD MD PROCEDURE: CXR1VW - CHEST 1VW CHEST 1VW HISTORY: Status post fall COMPARISON: None FINDINGS: A frontal projection of the chest was obtained. No acute pulmonary infiltrates is seen. The heart is borderline enlarged. Prominent interstitial markings are seen. Degenerative changes are seen. No evidence of aortic calcification is seen. IMPRESSION: 1. No acute pulmonary infiltrate is seen. DICTATED BY: ARIANA TREADWELL MD DATE: 03/15/25 1338 ELECTRONICALLY SIGNED BY: ARIANA TREADWELL MD DATE: 03/15/[address] Scan Comment [facility] [address] [place] [id number] IMAGING REPORT Signed PATIENT: JACQUI CONWAY MR#: [id number] : 1945 SEX: F AGE: 80 LOCATION: [facility] ORDER 1234 STATUS: REG ER [facility] REPORT#: [id number] SERVICE 123 REASON: fall ORDERING PHYSICIAN: YISEL STANFORD MD PROCEDURE: MAXFACI WO - CT MAXILLOFACIAL W/O CONTRAST CT MAXILLOFACIAL W/O CONTRAST HISTORY: Status post fall COMPARISON: None TECHNIQUE: Multiple sequential high-resolution axial images of the paranasal sinuses were obtained. Postprocessing sagittal and coronal reconstruction images were also obtained. Patient was not given contrast through intravenous route. FINDINGS: Nasal septum is deviated towards right. There is mucoperiosteal thickening involving the bilateral ethmoid and maxillary sinuses. The infundibula are patent bilaterally. No acute displaced fracture is seen. There is no evidence of air-fluid level in the paranasal sinuses. Parapharyngeal fat planes are preserved bilaterally. IMPRESSION: 1. No acute displaced fracture is seen. Lateral ethmoid and maxillary sinus disease. CT was performed with one or more following dose reduction techniques: automated exposure control, adjustment of the mA and kv according to patient's size, or use of a iterative reconstruction technique. DICTATED BY: ARIANA TREADWELL MD DATE: 03/15/251324 ELECTRONICALLY SIGNED BY: ARIANA TREADWELL MD DATE: 03/15/25 [address] [place] [id number] IMAGING REPORT Signed PATIENT: JACQUI CONWAY MR#: [id number] : 1945 SEX: F AGE: 80 LOCATION: [facility] ORDER 1234 STATUS: REG ER REPORT#: [id number] SERVICE 1233 REASON: fall ORDERING PHYSICIAN: YISEL STANFORD MD PROCEDURE: HEAD WO - CT HEAD/BRAIN W/O CONTRAST CT HEAD/BRAIN W/O CONTRAST HISTORY: Status post fall COMPARISON: 05/12/2024 TECHNIQUE: Multiple sequential axial images of the head were obtained from the base of the skull through vertex. Patient was not given contrast through intravenous route. FINDINGS: The ventricles and extraventricular CSF spaces are dilated consistent with cerebral atrophy. Nonspecific white matter changes seen. There is no midline shift, mass effect or herniation. No acute intracranial bleed is seen. There are bilateral ethmoid and maxillary sinusitis with mucoperiosteal thickening. Prominent at extra-axial CSF spaces are seen anteriorly unchanged. IMPRESSION: 1. No acute intracranial bleed is seen. 2. Atrophy with white matter changes. CT was performed with one or more following dose reduction techniques: automated exposure control, adjustment of the mA and kv according to patient's size, or use of a iterative reconstruction technique. DICTATED BY: ARIANA TREADWELL MD DATE: 03/15/25 132 ELECTRONICALLY SIGNED BY: ARIANA TREADWELL MD DATE: 03/15/25 132 [facility] MDM: Differential diagnosis: Syncope, fall, lip laceration, facial contusion, Rationale: Tests considered and ordered secondary to shared decision making include: labs, ECG and radiology Previous outside records reviewed: Old ER visits. Risk of complication and/or morbidity or mortality of patient management: None Medications-Per medication reconciliation Need for hospitalization: Patient does meet criteria for hospitalization. Need for emergency major/minor surgery: No There are no social concerns with this patient. Prescription drug management Prescriptions will include symptomatic care Patient's prior external medical records from other ER visits were reviewed by me as indicated. Prior testing and results from previous visits were reviewed. Prior tests were taken into account with medical decision making and resource utilization, independent historian/historians were used to obtain complete medical history. I independently interpreted the test that were performed, results were reviewed by me and considered findings on radiology if ordered. Medical management and examination interpretation discussions were had by me with other qualified healthcare professionals as indicated for the patient's care. Patient is a an 80-year-old female coming in to be evaluated after she had a fall earlier today. In his what caused the fall she states he does not remember. Patient does has a laceration in the right upper lip wishes with a. . Patient will be admitted under the care of Dr. Brush for ongoing management of syncope with the fall. ED Course Orders Procedure Category Date Status Time Cbc With Differential LAB 03/15/25 Complete 12:33 Chest 1vw RAD 03/15/25 Resulted 12:33 12 Lead Ekg Tracing- EKG 03/15/25 Complete Technical 12:33 Creatine Kinase, Total LAB 03/15/25 Complete 12:33 Troponin I High LAB 03/15/25 Complete Sensitivity 12:33 Urinalysis Profile LAB 03/15/25 Logged 12:33 Basic Metabolic Panel LAB 03/15/25 Complete 12:33 Ct Head/Brain W/O CT 03/15/25 Resulted Contrast 12:33 Ct Maxillofacial W/O CT 03/15/25 Resulted Contrast 12:33 Tetanus,Diphtheria PHA 03/15/25 Complete Tox [Adult] (Diphther 13:00 Ceftriaxone 1g Vial PHA 03/15/25 Complete (Rocephine 1g Inj) 13:00 Lidocaine Hcl 1% 20ml PHA 03/15/25 Complete Vial (Lidocaine Hc 13:00 Admit Orders ADM 03/15/25 Transmitted 14:52 Vs Per Unit Routine & CPOE 03/15/25 Transmitted With 14:52 Heart Healthy Diet DIET 03/15/25 Transmitted Dinner Acetaminophen 325 Tab PHA 03/15/25 In Process (Tylenol 325mg Tab 15:00 Ondansetron 4mg Inj PHA 03/15/25 In Process (Zofran 4mg Inj) 15:00 Current Medications Medications (Trade) Dose Ordered Sig/Maegan Route PRN Reason Start Time Stop Time Status Last Admin Dose Admin Acetaminophen (TYLenol 325MG TAB) 650 mg Q6H PRN PO MILD PAIN (1-3) 03/15/25 15:00 04/14/25 14:59 Ceftriaxone Sodium (ROCEphine 1G INJ) 1 gm ONCE ONCE IVPB 03/15/25 13:00 03/15/25 13:01 DC 03/15/25 13:28 Lidocaine HCl (Lidocaine HCl 1% 20ml Vial) 20 ml ONCE ONCE INJ 03/15/25 13:00 03/15/25 13:01 DC Ondansetron HCl (zoFRAN 4MG INJ) 4 mg Q6H PRN IVP NAUSEA/VOMITING 03/15/25 15:00 04/14/25 14:59 Tetanus/ Diphtheria Toxoids Adsorbed (DiphthERIA-teTANUS TOXOID [ADULT]/ DECAVAC) 0.5 ml ONCE ONCE IM 03/15/25 13:00 03/15/25 13:01 DC 03/15/25 13:30 Vital Signs Date Time Temp Pulse Resp B/P (MAP) Pulse Ox O2 Delivery O2 Flow Rate FiO2 03/15/25 12:24 98.1 88 16 113/76 95 Room Air 0 DX & DISP Disposition: Inpatient Decision to Admit Time: 15:08 Departure Impression: Primary Impression: Laceration of lip, complicated Additional Impressions: Closed head injury, Syncope Condition: Stable Referrals: MARCIA BRUSH MD (PCP) YISEL STANFORD MD Mar 15, 2025 13:10
--- NOTE | 2025-03-15 13:27 | HMCIMG ---
CT HEAD/BRAIN W/O CONTRAST HISTORY: Status post fall COMPARISON: 05/12/2024 TECHNIQUE: Multiple sequential axial images of the head were obtained from the base of the skull through vertex. Patient was not given contrast through intravenous route. FINDINGS: The ventricles and extraventricular CSF spaces are dilated consistent with cerebral atrophy. Nonspecific white matter changes seen. There is no midline shift, mass effect or herniation. No acute intracranial bleed is seen. There are bilateral ethmoid and maxillary sinusitis with mucoperiosteal thickening. Prominent at extra-axial CSF spaces are seen anteriorly unchanged. IMPRESSION: 1. No acute intracranial bleed is seen. 2. Atrophy with white matter changes. CT was performed with one or more following dose reduction techniques: automated exposure control, adjustment of the mA and kv according to patient's size, or use of a iterative reconstruction technique.
[2025-03-15] MEDS: cefTRIAXone 1G VIAL IVPB ONE (13:28)
--- NOTE | 2025-03-15 13:28 | HMCIMG ---
CT MAXILLOFACIAL W/O CONTRAST HISTORY: Status post fall COMPARISON: None TECHNIQUE: Multiple sequential high-resolution axial images of the paranasal sinuses were obtained. Postprocessing sagittal and coronal reconstruction images were also obtained. Patient was not given contrast through intravenous route. FINDINGS: Nasal septum is deviated towards right. There is mucoperiosteal thickening involving the bilateral ethmoid and maxillary sinuses. The infundibula are patent bilaterally. No acute displaced fracture is seen. There is no evidence of air-fluid level in the paranasal sinuses. Parapharyngeal fat planes are preserved bilaterally. IMPRESSION: 1. No acute displaced fracture is seen. Lateral ethmoid and maxillary sinus disease. CT was performed with one or more following dose reduction techniques: automated exposure control, adjustment of the mA and kv according to patient's size, or use of a iterative reconstruction technique.
[2025-03-15] MEDS: teTANUS/diphthERIA TOXOID [ADULT] 0.5 ML VIAL IM ONE (13:30)
--- NOTE | 2025-03-15 13:41 | HMCIMG ---
CHEST 1VW HISTORY: Status post fall COMPARISON: None FINDINGS: A frontal projection of the chest was obtained. No acute pulmonary infiltrates is seen. The heart is borderline enlarged. Prominent interstitial markings are seen. Degenerative changes are seen. No evidence of aortic calcification is seen. IMPRESSION: 1. No acute pulmonary infiltrate is seen.
[2025-03-15] MEDS ORDERED: ondanSETRON 4MG INJ IVP PRN (15:00)
[2025-03-15] MEDS ORDERED: ROPI3TAB21 PO ×2 (15:12→16:19)
[2025-03-15] MEDS ORDERED: BACL10TA PO (15:12)
[2025-03-15 15:54] LABS: APPEARANCE,URINE CLEAR (CLEAR); BILIRUBIN,URINE NEGATIVE (NEGATIVE); COLOR,URINE LIGHT-YELLOW (YELLOW); GLUCOSE, URINE (UA) NEGATIVE (NEGATIVE); KETONES,URINE NEGATIVE (NEGATIVE); LEUKOCYTE ESTERASE ,URINE NEGATIVE Leu/uL (NEGATIVE); NITRATE,URINE NEGATIVE (NEGATIVE); OCCULT BLOOD,URINE SMALL (NEGATIVE); PH,URINE 5.5 (5.0-8.0); PROTEIN,URINE NEGATIVE (NEGATIVE); UROBILINOGEN,URINE 0.2 mg/dL (0.2-1.0)
[2025-03-15 15:58] LABS: ADD UA MICROSCOPIC YES
[2025-03-15 15:59] LABS: MUCUS,URINE RARE LPF (None Seen); SQUAMOUS EPITHELIAL CELL,UR RARE /HPF (0-2); WBC,URINE 0-1 /HPF (0-1)
[2025-03-15] MEDS ORDERED: DULO60CA64 PO (16:18)
[2025-03-15] MEDS ORDERED: SULF1TAB42 PO (16:21)
[2025-03-15] MEDS: acetaMINOPHEN 325 MG TAB PO PRN ×2 (16:52→21:19)
--- NOTE | 2025-03-15 18:35 | HP ---
HISTORY AND PHYSICAL Date of Visit: Mar 15, 2025 Time of Visit: 18:35 ADMISSION DATE: CC: FALL SYNCOPE HPI: THIS IS 80 YR OLD WOMAN WITH HISTORY OF COPD, CHRONIC LBP RESTLESS LEG SYNDROME WHO PRESENTED TO THE ER AFTER AN ACUTE SYNCOPAL EPISODE. SHE AND HER WERE IN THE PROCESS OF GETTING INTO HER TRUCK AND THAT IS THE LAST THING SHE REMEMBERS. HER WITNESSED THE EVENT AND NOTED THAT SHE FELL FORWARD AND HIT HER FACE / HEAD. SHE AWOKE FAIRLY QUICKLY BUT SHE WAS CONFUSED SO HE DECIDED TO HAVE HER EVALUATED IN THE EMERGENCY ROOM. SHE HAS HAD 3 FALLS IN THE PAST YEAR ACCORDING TO HER . EACH TIME NO MAJOR INJURIES. IN THE ER SHE WAS ALERT AND ORIENTED. SHE REPORTS SHE WAS PLANNING TO HAVE AN OUTPATIENT PROCEDURE IN [place] ON TUESDAY FOR A BLADDER LIFT. SHE HAD BEEN PLANNING THIS FOR A LONG TIME AND APPEARED VERY DISTRAUGHT AND CONCERNED ABOUT BEING ABLE TO PROCEED SCHEDULED. SHE DENIED ANY FEVERS CHILLS NAUSEA VOMITING ABDOMINAL PAIN. SHE ALSO DENIED ANY CHEST PAINS PALPITATIONS SOB OR LEG SWELLING. NO DIARRHEA CONSTIPATION. SHE DOES HAVE CHRONIC URINARY INCONTINENCE AND WAS TOLD SHE HAD A MILD UTI AND HAD BEEN STARTED ON NITROFURANTOIN BUT HER SPECIALIST THAT WAS GOING TO DO HER BLADDER PROCEDURE ON TUESDAY. ONCE THE CULTURE WAS AVAILABLE, HER ANTIBIOTIC WAS THEN CHANGED TO BACTRIM AND SHE FINISHING UP HER TREATMENT BUT DENIED ANY URINARY SYMPTOMS AT THIS TIME. 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 HX DVT DURING HX LEFT HIP FRACTURE DUE TO ACCIDENTAL FALL 11/2022 S/P LEFT HIP UNCEMENTED HEMIARTHROPLASTY - 11/2022 DR AMBROCIO S/P MINIMALLY INVASIVE LUMBAR DECOMPRESSION- 05/2023 S/P SACROILIAC PINNING -DR ISABEL S/P APPENDECTOMY S/P UMBILICAL HERNIA REPAIR S/P HYSTERECTOMY S/P BREAST REDUCTION S/P ABDOMINAL PLASTY S/P ROTATOR CUFF REPAIR SOCIAL HISTORY: [] FAMILY HISTORY: [] Patient History: Alzheimer's disease Carcinomas MOTHER, , Age: 65, Cause: Liver cancer FATHER, , Age: 86, Cause: Lymphoma Cardiovascular disease FATHER, , Age: 86, Cause: Lymphoma SISTER Diabetes mellitus BROTHER BROTHER Allergies: Coded Allergies: rivaroxaban (Unverified Allergy, Unknown, 03/15/25) Scheduled Duloxetine HCl (Duloxetine HCl), 60 MG PO BID, (Reported) Sulfamethoxazole/Trimethoprim (Bactrim Ds Tablet), 1 TAB PO BID, (Reported) [Biestrogen], 200 MG PO HS, (Reported) Scheduled PRN Baclofen (Baclofen), 10 MG PO PM PRN for spasm Ropinirole HCl (Ropinirole HCl), 3 MG PO HSPRN PRN for INSOMNIA Discontinued Medications Acetaminophen (Arthritis Pain), 1,300 MG PO BID, (Reported) Acetaminophen with Codeine (Acetaminophen-Cod #3 Tablet), 1 TAB PO Q4H PRN for MODERATE TO SEVERE PAIN Ascorbic Acid/Ascorbate Sodium (Vitamin C 500 mg Tablet Chew), 500 MG PO DAILY, (Reported) Calcium Carb & Cit/Vitamin D3 (Calcium + D3 ER Tablet), 1 EACH PO DAILY, (Reported) Cholecalciferol (Vitamin D3) (Vitamin D3), 225 MCG PO DAILY, (Reported) Clindamycin HCl (Clindamycin HCl), 1 CAP PO QID Duloxetine HCl (Duloxetine HCl), 60 MG PO BID Hydrocodone/Acetaminophen (Hydrocodon-Acetaminophen 5-325), 1 EACH PO Q 4 HRS PRN for SEVERE PAIN (7-10) Multivitamin (One Daily), 1 EACH PO AM, (Reported) Mv-Mn/FA/Vit K/Lycop/Lut/Zeaxa (Ocuvite Eye + Multi Tablet), 1 EACH PO DAILY, (Reported) Rivaroxaban (Xarelto), 10 MG PO DAILY Ropinirole HCl (Requip), 3 MG PO HS, (Reported) Discontinued Reason: Prescription changed Ropinirole HCl (Ropinirole HCl), 1 TAB PO HS, (Reported) Review of Systems Normal Eyes:, Normal Ear/Nose/Mouth/Throat, Normal Cardiovascular:, Normal Respiratory:, Normal Gastrointestinal:, Normal Genitourinary:, Normal Neurological:, Normal Psychological:, Normal Endocrine:, Normal Hematologic/Lymphatic:, Normal Allergic/Immunologic:; Abnormal Constitutional: (REFE TO HPI), Abnormal Integumentary: (RIGHT FACIAL SWELLING), Abnormal Musculoskeletal: (RIGHT WRIST SWELLING AND HEMATOMA) Physical Exam Vital Signs Vital Signs Date Time Temp Pulse Resp B/P (MAP) Pulse Ox O2 Delivery O2 Flow Rate FiO2 03/15/25 12:24 98.1 88 16 113/76 95 Room Air 0 Appearance: Other (SLIGHTLY ANXIOUS BUT WELL DEVELOPED AND WELL NOURISHED) Eyes: Clear, PERRL Ear/Nose/Mouth/Throat: Landmarks WNL, Hearing WNL, Nasal w/o drainage, Dentition WNL, Oropharynx WNL Neck: Symmetric, trach midline, Thyroid WNL Cardiovascular: PMI WNL, Regular Rate, Regular Rhythm, Normal S1, S2, Femoral Pulses +2, Pedal Pulses +2, No Edema Respiratory: No Retractions, No rubs/wheezing, Abnormal (DISATN BS BILATERALLY) G.I.: Normal bowel sounds, No pain w/ palpations, No rebound tenderness Musculoskeletal: Gait WNL, Strength/Tone WNL Skin: Abnormal (RIGHT MAXILLARY, SCARLETT-ORTIBAL FRONTAL HEMATOMA WITH SWELLING) Neurology: Nerves I-XII intact, Sensation WNL Psychology: Insight WNL, Orientation WNL, Memory WNL, Abnormal (SLIGHTLY A NXIOUS AND EMOTIONAL) Diagnostics Laboratory Tests Test 03/15/25 12:36 03/15/25 15:46 Range/Units White Blood Count 5.9 4.8-10.8 K/uL Red Blood Count 4.16 4.00-5.50 MIL/uL Hemoglobin 12.1 12.0-16.0 g/dL Hematocrit 38.0 36-48 % Mean Corpuscular Volume 91.3 79-99 fL Mean Corpuscular Hemoglobin 29.1 27.0-33.0 pg Mean Corpuscular Hemoglobin Concent 31.8 32.0-36.0 g/dL Red Cell Distribution Width 15.6 11.0-15.5 % Platelet Count 267 130-400 K/uL Mean Platelet Volume 8.9 7.5-10.5 fL Immature Granulocyte % (Auto) 0.7 0-1 % Neutrophils (%) (Auto) 69.7 40.0-77.0 % Lymphocytes (%) (Auto) 15.6 21.0-51.0 % Monocytes (%) (Auto) 9.5 3.0-13.0 % Eosinophils (%) (Auto) 4.2 0.0-8.0 % Basophils (%) (Auto) 0.3 0.0-5.0 % Neutrophils # (Auto) 4.1 1.8-7.7 K/uL Lymphocytes # (Auto) 0.9 1.0-4.8 K/uL Monocytes # (Auto) 0.6 0.1-1.0 K/uL Eosinophils # (Auto) 0.25 0.00-0.70 K/uL Basophils # (Auto) 0.02 0.00-0.20 K/uL Absolute Immature Granulocyte (auto 0.04 0-1 K/uL Nucleated Red Blood Cells 0.0 0.0-0.19 % Sodium Level 136 136-145 mmol/L Potassium Level 3.9 3.5-5.1 mmol/L Chloride Level 101 101-111 mmol/L Carbon Dioxide Level 23 21-32 mmol/L Blood Urea Nitrogen 25 7-18 mg/dL Creatinine 0.7 0.5-1.0 mg/dL Glomerular Filtration Rate Calc 87 >90 mL/min Random Glucose 123 70-105 mg/dL Total Calcium 8.9 8.5-10.1 mg/dL Total Creatine Kinase 226 21-232 U/L Troponin I High Sensitivity 7 4-50 ng/L Urine Color LIGHT-YELLOW YELLOW Urine Appearance CLEAR CLEAR Urine pH 5.5 5.0-8.0 Urine Specific [place] 1.010 1.001-1.031 Urine Protein NEGATIVE NEGATIVE mg/dL Urine Glucose (UA) NEGATIVE NEGATIVE mg/dL Urine Ketones NEGATIVE NEGATIVE mg/dL Urine Occult Blood SMALL NEGATIVE Urine Nitrate NEGATIVE NEGATIVE Urine Bilirubin NEGATIVE NEGATIVE mg/dL Urine Urobilinogen 0.2 0.2-1.0 mg/dL Urine Leukocyte Esterase NEGATIVE NEGATIVE Gideon/uL Urine RBC 2-5 0-1 /HPF Urine WBC 0-1 0-1 /HPF Urine Squamous Epithelial Cells RARE 0-2 /HPF Urine Bacteria None None Seen /HPF Assessment/Plan Assessment/Plan DIAGNOSTICS EKG Comment 03/15/2025 time 12:39 p.m. Ventricular rate 80 Sinus rhythm [place] [address] wave elevation or depression RADIOLOGY CHEST 1VW FINDINGS: A frontal projection of the chest was obtained. No acute pulmonary infiltrates is seen. The heart is borderline enlarged. Prominent interstitial markings are seen. Degenerative changes are seen. No evidence of aortic calcification is seen. IMPRESSION: No acute pulmonary infiltrate is seen. CT MAXILLOFACIAL W/O CONTRAST FINDINGS: Nasal septum is deviated towards right. There is mucoperiosteal thickening involving the bilateral ethmoid and maxillary sinuses. The infundibula are patent bilaterally. No acute displaced fracture is seen. There is no evidence of air-fluid level in the paranasal sinuses. Parapharyngeal fat planes are preserved bilaterally. IMPRESSION: No acute displaced fracture is seen. Lateral ethmoid and maxillary sinus disease. CT HEAD/BRAIN W/O CONTRAST FINDINGS: The ventricles and extraventricular CSF spaces are dilated consistent with cerebral atrophy. Nonspecific white matter changes seen. There is no midline shift, mass effect or herniation. No acute intracranial bleed is seen. There are bilateral ethmoid and maxillary sinusitis with mucoperiosteal thickening. Prominent at extra-axial CSF spaces are seen anteriorly unchanged. IMPRESSION: 1. No acute intracranial bleed is seen. 2. Atrophy with white matter changes. 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 HX DVT DURING HX LEFT HIP FRACTURE DUE TO ACCIDENTAL FALL 11/2022 S/P LEFT HIP UNCEMENTED HEMIARTHROPLASTY - 11/2022 DR AMBROCIO S/P MINIMALLY INVASIVE LUMBAR DECOMPRESSION- 05/2023 S/P SACROILIAC PINNING -DR ISABEL S/P APPENDECTOMY S/P UMBILICAL HERNIA REPAIR S/P HYSTERECTOMY S/P BREAST REDUCTION S/P ABDOMINAL PLASTY S/P ROTATOR CUFF REPAIR SHE PRESENTED WITH AN ACUTE SYNCOPAL EPISODE SUSTAINING A CLOSED HEAD INJURY WITH CONCUSSION RIGHT LIP LACERATION S/P SUTURING IN THE ER RIGHT MAXILLARY, SCARLETT-ORTIBAL AND FRONTAL HEMATOMA WITH SWELLING RECENT OUTPATIENT UTI PLAN: KEEP FOR OBSERVATION MONITOR ON TELEMETRY HYDRATE WITH IVF AND MONITOR BP COMPLETE ORAL ANTIBIOTIC THERAPY FOR HER RECENT UTI OTHER INFECTIOUS ETIOLOGIES HAVE BEEN RULED OUT INCREASE DIET AND REHAB TOLERATED HOLD SEDATING MEDICATIONS TOLERATED SUPPLEMENT ELECTROLYTES ANALGESICS NEEDED - FOR NOW REPORTS TYLENOL IS SUFFICIENT SUPPORTIVE MEASURES MARCIA MODI MD Mar 15, 2025 18:35
[2025-03-15] MEDS ORDERED: acetaMINOPHEN 325 MG TAB PO PRN (19:00)
[2025-03-15] MEDS ORDERED: DEXTROSE 50%-WATER 50 ML DISP.SYRIN IV PRN (19:00)
[2025-03-15] MEDS ORDERED: ondanSETRON 4MG INJ IV PRN (19:00)
[2025-03-15] MEDS ORDERED: LACTULOSE 20 GM/30 ML UDCUP PO PRN (19:00)
[2025-03-15] MEDS ORDERED: MAGNESIUM 2GM PREMIX 50ML 50 ML IV PRN (19:00)
[2025-03-15] MEDS ORDERED: guaiFENesin-DM 200/20MG 10ML PO PRN (19:00)
[2025-03-15] MEDS ORDERED: PoTASSium chloRIDE 20MEQ ER 20 MEQ ERTAB PO PRN (19:00)
[2025-03-15] MEDS ORDERED: PoTASSium chloRIDE 20MEQ/100ML 100 ML IV PRN (19:00)
[2025-03-15] MEDS ORDERED: PoTASSium chl 10% ELIXIR 20MEQ 20 MEQ/15 ML UDCUP PO PRN (19:00)
[2025-03-15] MEDS ORDERED: GLUCAGON 1MG KIT 1 MG ML IM PRN (19:00)
[2025-03-15] MEDS ORDERED: ALBUTEROL 0.083% 2.5 MG/3 ML INH IH PRN (19:00)
[2025-03-15] MEDS ORDERED: MAG/ALUM/SIMETH 30 ML UDCUP PO PRN (19:00)
[2025-03-15] MEDS: ropiNIRole HCL 1 MG TABLET PO PRN (19:40)
[2025-03-15] MEDS: 0.9%NACL 1000ML 1,000 ML IV SCH (19:40)
[2025-03-15] MEDS: duloXETine HCL 30 MG CAP PO SCH (21:13)
[2025-03-15] MEDS: sulfaMETHOX-TMP DS 800/160 TAB PO SCH (21:13)
[2025-03-15] MEDS ORDERED: PHARMACY COMMUNICATION MISC ONE (21:30)
[2025-03-15 21:36] VITALS: PULSE 76; RESP 17; O2SAT 97
[2025-03-15 21:50] VITALS: BP 122/55; PULSE 89; RESP 18; TEMP 97.5
--- NOTE | 2025-03-15 21:50 | NUR ---
admit note admit to room 403 via stretcher from er, patient awake alert, ox3, no family at bedside, teach plan of care and expected outcome, patient verbalizes understanding via teachback
[2025-03-16 00:25] VITALS: BP 103/63; PULSE 80; RESP 18; TEMP 97.5
[2025-03-16 04:00] VITALS: BP 101/56; PULSE 86; RESP 18; TEMP 97.7
[2025-03-16 07:10] VITALS: PULSE 76; RESP 18; O2SAT 96
[2025-03-16 08:00] VITALS: BP 84/58; PULSE 64; RESP 18; TEMP 98.3; O2SAT 98
[2025-03-16 08:46] VITALS: BP 100/63; PULSE 89
[2025-03-16] MEDS ORDERED: ENOXAPARIN SODIUM 30 MG/0.3 ML SQ SCH (09:00)
[2025-03-16] MEDS ORDERED: ROPI3TAB21 PO (10:46)
--- NOTE | 2025-03-16 11:07 | HMCIMG ---
EXAM: CR right Wrist, 3 View. CLINICAL HISTORY: R/O FRACTURE COMPARISON: None provided. FINDINGS: BONES: No acute osseous abnormality. No acute fracture. JOINTS: No dislocation. 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 SOFT TISSUES: The soft tissues are unremarkable. IMPRESSION: 1. No acute osseous injury. 2. Severe triscaphe osteoarthritis, moderate thumb basal joint osteoarthritis, and mild osteoarthritis of the distal radial ulnar and radiocarpal joints. /[place]
[2025-03-16] MEDS ORDERED: MIDO5TAB4 PO (11:34)
--- NOTE | 2025-03-16 11:36 | DS ---
DISCHARGE SUMMARY Date of Visit: Mar 16, 2025 Time of Visit: 11:36 ADMISSION DATE: Mar 15, 2025 at 12:23 DISCHARGE DATE: Mar 16, 2025 ATTENDED PHYSICIAN: Marcia Brush MD DISCHARGE DIAGNOSIS: ACUTE SYNCOPAL EPISODE SUSTAINING A CLOSED HEAD INJURY WITH HEAD CONCUSSION RIGHT LIP LACERATION S/P SUTURING IN THE ER RIGHT MAXILLARY, SCARLETT-ORBITAL AND FRONTAL HEMATOMA WITH SWELLING RECENT OUTPATIENT UTI COPD ( EX-SMOKER) WITH HX SPONTANEOUS PNEUMOTHORAX IN THE REMOTE PAST BRONCHIECTASIS LUMBAR STENOSIS / LUMBAR SPONDYLOPATHY RESTLESS LEG SYNDROME HYPERLIPIDEMIA MIXED CHRONIC URINARY INCONTINENCE POLYNEUROPATHY 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 No acute pulmonary infiltrates is seen. The heart is borderline enlarged. Prominent interstitial markings are seen. Degenerative changes are seen. No evidence of aortic calcification is seen. IMPRESSION: No acute pulmonary infiltrate is seen. CT MAXILLOFACIAL W/O CONTRAST FINDINGS: Nasal septum is deviated towards right. There is mucoperiosteal thickening involving the bilateral ethmoid and maxillary sinuses. The infundibula are patent bilaterally. No acute displaced fracture is seen. There is no evidence of air-fluid level in the paranasal sinuses. Parapharyngeal fat planes are preserved bilaterally. IMPRESSION: No acute displaced fracture is seen. Lateral ethmoid and maxillary sinus disease. CT HEAD/BRAIN W/O CONTRAST FINDINGS: The ventricles and extraventricular CSF spaces are dilated consistent with cerebral atrophy. Nonspecific white matter changes seen. There is no midline shift, mass effect or herniation. No acute intracranial bleed is seen. There are bilateral ethmoid and maxillary sinusitis with mucoperiosteal thickening. Prominent at extra-axial CSF spaces are seen anteriorly unchanged. IMPRESSION: 1. No acute intracranial bleed is seen. 2. Atrophy with white matter changes. HOSPITAL COURSE: THIS IS A 80 YR OLD WOMAN WITH THE PAST MEDICAL HISTORY HOW PRESENTED WITH AN ACUTE SYNCOPAL EPISODE SUSTAINING A CLOSED HEAD INJURY WITH CONCUSSION, RIGHT LIP LACERATION S/P SUTURING IN THE ER, RIGHT MAXILLARY. SCARLETT-ORBITAL AND FRONTAL HEMATOMA WITH SWELLING AND A RECENT OUTPATIENT UTI COMPLETING BACTRIM. SHE WAS R/O FOR FOR ANY OTHER ADDITIONAL INFECTIONS, HYDRATED WITH IVF AND DID WELL OVERNIGHT WITHOUT ANY ACUTE FRACTURES OR INTERNAL BLEEDING NOTED ON IMAGING. SHE WAS NOTED TO HAVE SOME HYPOTENSION DESPITE IVF HYDRATION AND WAS ASKED TO CONTINUE OFF BACLOFEN AND DECREASE HER DOSE OF REQUIP SINCE MAY BE CONTRIBUTING AND AN ADDITIONAL SCRIPT FOR MIDODRINE WAS GIVEN FOR PRN USE TO TRY TO PREVENT RECURRENT HYPOTENSION. SHE WAS AMBULATING WELL AND TAKING GOOD PO INTAKE AND DISCHARGED THE FOLLOWING DAY. SHE WAS VERY ANXIOUS FOR RELEASE SINCE SHE HAD A SCHEDULED BLADDER SURGERY ON TUESDAY IN [place] THAT SHE DID NOT WANT TO MISS. DIET: HEART HEALTHY ACTIVITY: PROGRESSIVE AMBULATION CONDITION: STABLE EQUIPMENT: NONE FOLLOW UP APPOINTMENT(S): DR BRUSH DISPOSITION: HOME CODE STATUS: FULL MEDICATION RECONCILIATION : Home Medications were reconciled with hospital medications upon discharge and discussed with patient and/or responsible alliance party. D/C BACLOFEN DECREASE ROPINIROLE 1.5 MG PO QHS ADD MIDODRINE 5 MG PO TID PRN SBP < 100 COMPLETE BACTRIM FOR RECENT UTI ^ Home Meds Active Scripts Midodrine HCl (Midodrine HCl) 5 Mg Tablet, 1 TAB PO TID for LOW BLOOD PRESSURE for 30 Days, #30 TAB 1 Refill PRN SBP < 100 Prov:MARCIA BRUSH MD 03/16/25 Ropinirole HCl (Ropinirole HCl) 3 Mg Tablet, 1.5 MG PO HSPRN PRN for RESTLESSNESS for 30 Days, #90 TAB 0 Refills TAKE 1/2 TAB PO Q HS PRN RESTLESSNESS Prov:MARCIA BRUSH MD 03/16/25 Reported Medications Sulfamethoxazole/Trimethoprim (Bactrim Ds Tablet) 800 Mg-160 Mg Tablet, 1 TAB PO BID, TAB 03/15/25 Duloxetine HCl (Duloxetine HCl) 60 Mg Capsule.dr, 60 MG PO BID, CAP 03/15/25 [Biestrogen] No Conflict Check, 200 MG PO HS 11/27/18 Discontinued Reported Medications Ropinirole HCl (Ropinirole HCl) 3 Mg Tablet, 1 TAB PO HS for 30 Days, #30 TAB 0 Refills 03/15/25 Acetaminophen (Arthritis Pain) 650 Mg Tablet.er, 1300 MG PO BID, TAB 12/04/22 Cholecalciferol (Vitamin D3) (Vitamin D3) 75 Mcg Tablet, 225 MCG PO DAILY, TAB 12/04/22 Ascorbic Acid/Ascorbate Sodium (Vitamin C 500 mg Tablet Chew) 500 Mg Tab.chew, 500 MG PO DAILY, TAB.CHEW 12/04/22 Calcium Carb & Cit/Vitamin D3 (Calcium + D3 ER Tablet) 1 Each Tablet.er, 1 EACH PO DAILY, TAB 12/04/22 Mv-Mn/FA/Vit K/Lycop/Lut/Zeaxa (Ocuvite Eye + Multi Tablet) 1 Each Tablet, 1 EACH PO DAILY, TAB 12/04/22 Multivitamin (One Daily) 1 Each Tablet, 1 EACH PO AM, TAB 11/27/18 Ropinirole HCl (Requip) 1 Mg Tablet, 3 MG PO HS, TAB 11/27/18 Discontinued Scripts Baclofen (Baclofen) 10 Mg Tablet, 10 MG PO PM PRN for spasm, #30 TAB 1 Refill PRN MUSCLE SPASM Prov:MARCIA BRUSH MD 03/15/25 Clindamycin HCl (Clindamycin HCl) 300 Mg Capsule, 1 CAP PO QID for 7 Days, #28 CAP 0 Refills Prov:CARLOS BERRY NP 11/17/24 Acetaminophen with Codeine (Acetaminophen-Cod #3 Tablet) 300 Mg-30 Mg Tablet, 1 TAB PO Q4H PRN for MODERATE TO SEVERE PAIN, #15 TAB 0 Refills Prov:CARLOS BERRY NP 11/17/24 Rivaroxaban (Xarelto) 10 Mg Tablet, 10 MG PO DAILY, #30 TAB 0 Refills Prov:MARCIA BRUSH MD 12/06/22 Hydrocodone/Acetaminophen (Hydrocodon-Acetaminophen 5-325) 1 Each Tablet, 1 EACH PO Q 4 HRS PRN for SEVERE PAIN (7-10), #30 TAB 0 Refills Prov:MARCIA BRUSH MD 12/06/22 Duloxetine HCl (Duloxetine HCl) 60 Mg Capsule.dr, 60 MG PO BID, #60 CAP 3 Refills Prov:MARCIA BRUSH MD 05/24/22 MARCIA BRUSH MD Mar 16, 2025 11:36
[2025-03-16 12:00] VITALS: BP 103/60; PULSE 84; RESP 18; TEMP 98
[2025-03-16] MEDS ORDERED: ropiNIRole HCL 1 MG TABLET PO PRN (13:00)
--- NOTE | 2025-03-16 13:03 | NUR ---
DC INSTRUCTIONS PROVIDED TO PATIENT PATIENT VERBALIZED UNDERSTANDING
== END 2025-03-16 12:58 | disposition home or self-care (01) ==
LOC: EDH 12:22 → EDHIP 12:23 → 4AH 21:35
PROVIDERS: ADMIT Internal Medicine; ATTEND Internal Medicine
DX: J44.9 Chronic obstructive pulmonary disease, unspecified (principal); J47.9 Bronchiectasis, uncomplicated; M48.061 Spinal stenosis, lumbar region without neurogenic claudication; G25.81 Restless legs syndrome; E78.2 Mixed hyperlipidemia; R32 Unspecified urinary incontinence; E11.40 Type 2 diabetes mellitus with diabetic neuropathy, unspecified; K76.0 Fatty (change of) liver, not elsewhere classified; J32.0 Chronic maxillary sinusitis; I25.10 Atherosclerotic heart disease of native coronary artery without angina pectoris; S01.511A Laceration without foreign body of lip, initial encounter; M25.531 Pain in right wrist; M19.90 Unspecified osteoarthritis, unspecified site; M54.50 Low back pain, unspecified; R55 Syncope and collapse; R16.0 Hepatomegaly, not elsewhere classified; Z79.01 Long term (current) use of anticoagulants; Z79.899 Other long term (current) drug therapy; Z86.718 Personal history of other venous thrombosis and embolism; Z87.891 Personal history of nicotine dependence; Z90.49 Acquired absence of other specified parts of digestive tract; Z90.710 Acquired absence of both cervix and uterus; W19.XXXA Unspecified fall, initial encounter; Y93.89 Activity, other specified; Y92.89 Other specified places as the place of occurrence of the external cause; Y99.8 Other external cause status
CPT/HCPCS: 96374; 96361 ×2; 99285; 82550; 84484; 80048; 85025; 81001; 36415; 90714; 71045; 70450; 70486; 90471; 93005; 94664; 73100; 97161; 97116; G0378 ×18; J7030; J0696